=== PATIENT | male | born 1950 | race Caucasian/White ===

== ENCOUNTER → 2018-11-27 11:41 | Outpatient (CLI) | payer MEDICARE, SELFPAY ==
--- NOTE | 2018-11-27 | DI.CT.S_ITS ---
PROCEDURE: CT CERVICAL SPINE WO CON INDICATIONS: Severe posterior neck pain TECHNIQUE: Noncontrast 3 mm thick sections acquired from the skull base to the T4 level. Sagittal and coronal reformats were then constructed. For radiation dose reduction, the following was used: automated exposure control, adjustment of mA and/or kV according to patient size. COMPARISON: [facility] [place], [place], XR CERVICAL SPINE 2 OR 3 VIEWS, 09/11/2017, 15:57. FINDINGS: Image quality: Excellent. Bones: A prosthetic disc is noted at C3-4 with grade 1 anterolisthesis of C3 on C. or measuring 5 mm. There is severe disc space narrowing at C5-6 and C6-7. Trace retrolisthesis is present of C6 on C7. Multilevel small anterior osteophytes are present most prominent at C5, C6 and C7. Disc bulges are present at C4-5, C5-6 C6-7. Mild spinal stenosis is present at C4-5 and C5-6. There is moderate right foraminal narrowing at C4-5, moderate bilateral C5-6 and moderate left C6-7. Soft tissues: Prevertebral soft tissues are normal in thickness. No paravertebral hematomas. No apical pneumothoraces. IMPRESSION: 1. 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 2. Multilevel disc bulges and spinal stenosis. 3. Multilevel foraminal narrowing most significant at C4-5 through C6-7 secondary to uncovertebral arthropathy. Dictated by: Leticia Shah M.D. on 11/27/2018 at 14:32 Approved by: Leticia Shah M.D. on 11/27/2018 at 14:56
== END ==
PROVIDERS: PCP Physician Assistant; Visit Provider Orthopaedic Surgery
DX: M50.221 Other cervical disc displacement at C4-C5 level (principal); M47.812 Spondylosis without myelopathy or radiculopathy, cervical region; M48.02 Spinal stenosis, cervical region; M43.12 Spondylolisthesis, cervical region
CPT/HCPCS: 72125

== ENCOUNTER → 2019-05-31 10:38 | Outpatient (CLI) | payer MEDICARE, SELFPAY ==
--- NOTE | 2019-05-31 | DI.MRI.S_ITS ---
PROCEDURE: MR LUMBAR SPINE WO CON INDICATIONS: Spinal stenosis, lumbar region TECHNIQUE: Noncontrast sagittal T1 spin echo and T2 fast echo, sagittal STIR, axial T1 and T2 fast spin echo through the lumbar spine. In cases with scoliosis, additional coronal T2 fast spin echo may be performed. COMPARISON: [facility] [place], CR, XR LUMBAR SPINE 2 OR 3 VIEWS, 05/14/2019, 14:34. FINDINGS: Image quality: Excellent. Alignment and Curvature: There is one anterolisthesis of L4 on L5. Bone Marrow: Marrow is of normal overall signal. No acute vertebral body compression fractures. Spinal Cord: Conus medullaris terminates at the L1 level. Visualized cord demonstrates normal signal and size. Paraspinous Soft Tissues: No paravertebral masses. L1-L2: Mild loss of disc height and disc desiccation. There is diffuse posterior disc bulge. Mild bilateral facet arthropathy and hypertrophy ligamentum flavum. The central canal is moderately narrowed. Moderate left and mild right foraminal stenosis. No definitive nerve root impingement. L2-L3: Mild loss of disc height and disc desiccation. There is diffuse posterior disc bulge. Mild bilateral facet arthropathy and hypertrophy ligamentum flavum. Epidural lipomatosis. The central canal is whdykvak-iz-lrzoquma narrowed. Moderate foraminal stenoses bilaterally. There is likely cauda equina nerve root compression. L3-L4: Preserved disc height and disc desiccation. There is diffuse posterior disc bulge. Mild bilateral facet arthropathy and hypertrophy ligamentum flavum. Epidural lipomatosis. The central canal is lgczdgdz-va-jxxoreih narrowed. Ulna-mv-eiicqxrw foraminal stenoses bilaterally. There is likely cauda equina nerve root compression. L4-L5: Preserved disc height and disc desiccation. There is diffuse posterior disc bulge. Severe right and moderate left facet arthropathy. The central canal mildly narrowed. Eqvwarxr-vv-xjbyno foraminal stenoses bilaterally. No definitive nerve root compression. L5-S1: Preserved disc height and disc desiccation. There is diffuse posterior disc bulge and disc protrusion. Moderate left and mild right facet arthropathy. The central canal patent. Jkejigjr-ed-fhvent foraminal stenoses bilaterally. No definitive nerve root compression. IMPRESSION: 1. Multilevel degenerative disc disease and facet arthropathy as described. 2. Bynicwvr-ky-dlppos central canal stenosis at L2-L3 and L3-L4, and moderate central canal stenosis at L1-L2. 3. Multilevel foraminal stenoses as described. Dictated by: Sanford Taylor M.D. on 06/01/2019 at 14:00 Approved by: Sanford Taylor M.D. on 06/01/2019 at 14:17
== END ==
PROVIDERS: PCP Physician Assistant; Visit Provider Orthopaedic Surgery
DX: M48.062 Spinal stenosis, lumbar region with neurogenic claudication (principal); M48.07 Spinal stenosis, lumbosacral region; M51.36 Other intervertebral disc degeneration, lumbar region; M51.37 Other intervertebral disc degeneration, lumbosacral region; M47.816 Spondylosis without myelopathy or radiculopathy, lumbar region; M47.817 Spondylosis without myelopathy or radiculopathy, lumbosacral region
CPT/HCPCS: 72148

== ENCOUNTER → 2019-11-21 13:55 | Outpatient (CLI) | payer MEDICARE, SELFPAY ==
[2019-11-22 08:17] LABS: COVID19 Sendout Not Detected (Not Detect)
== END ==
PROVIDERS: PCP Physician Assistant; Visit Provider Physician Assistant
DX: Z01.818 Encounter for other preprocedural examination (principal)
CPT/HCPCS: 87635

== ENCOUNTER 2019-11-24 06:37 | Inpatient (IN) | payer MEDICARE, SELFPAY ==
[2019-09-11 09:00] VITALS: BMI 26.3
[2019-11-18 11:58] VITALS: BMI 26.3
--- NOTE | 2019-11-20 14:24 | SUR.PREOP ---
Addendum entered by Ellie Allan R.N. 11/20/19 14:31: pt returned call and advised he is schd for Sat 11/23 @ [id number] Original Note: Left msg regarding covid test requesting pt to call with info on where and when test was performed
[2019-11-24] VITALS (16 sets, daily range): BP systolic 113–167; BP diastolic 52–84; PULSE 72–89; RESP 7–18; TEMP 35.8–37.3; O2SAT 95–100; BMI 26.3
--- NOTE | 2019-11-24 | DI.RAD.S_ITS ---
PROCEDURE: XR CERVICAL SPINE 2V OR 3V INDICATIONS: C3-4 ARTIFICIAL DISK REMOVAL TECHNIQUE: 2 view(s) of the cervical spine were acquired. COMPARISON: [facility], XR CERVICAL SPINE 2 OR 3 VIEWS, 05/25/2019, 14:38. FINDINGS: Spot fluoroscopic intraoperative images demonstrating removal of C3-C4 prosthetic disc Interbody cage and anterior retaining pins at C3-C4. Dictated by: Bradley Pineda M.D. on 11/24/2019 at 10:38 Approved by: Bradley Pineda M.D. on 11/24/2019 at 10:40
--- NOTE | 2019-11-24 07:16 | P.HP_ITS ---
History of Present Illness History of Present Illness Date Patient Seen: 11/24/19 Time Patient Seen: 07:16 Chief complaint: [id number] Narrative: 69-year-old male with cervical myelopathy. He has a history of a C3- 4 artificial disc replacement on 06/06/2017. He did well at 1st but over the past year has been having increasing symptoms. If he moves his head quickly or tips his head backwards, his whole body feels weak and he feels like he will pass out. He had an epidural injection which relieved the symptoms for about a month. He has some popping and cracking in the neck but only mild pain in the neck itself. Denies knee pain numbness or weakness going out in the arms. He did have another fall a few weeks ago when he was about to go up the stairs and he looked up too quickly and 5th completely collapsed. He does have low back pain with radiation going down the legs as well. Patient History Medical History Colon polyps (Acute) DJD (degenerative joint disease) (Acute) Easy bruisability (Acute) Finger injury (Acute) Former smoker (Acute) GERD (gastroesophageal reflux disease) (Acute) HTN (hypertension) (Acute) Numbness and tingling (Acute) Pneumonia (Acute) Prostate cancer (Acute 2010) Recurrent prostate cancer (Acute 2012) Surgical History H/O radical prostatectomy (Acute 2010) History of arthroplasty of right hip (Acute 2007) History of back surgery (Acute) Hx of cervical spine surgery (Acute 2016) Hx of hernia repair (Acute) Hx of laminectomy (Acute) Hx of thumb surgery (Acute) Hx of tonsillectomy (Acute) S/P foot surgery, right (Acute 09/16/17) Family & Social History Social History: household members spouse,family Prior Living Arrangements House Safety & Behavioral: Feels Safe in Current Yes Environment Been Physically Hurt or No Threatened By a Person Suicidal Ideation Description None Suicide Plan Description No Plan Tobacco & Substance use: Smoking Status Former smoker alcohol intake current alcohol intake frequency 3 or more drinks per day Substance Use Type marijuana Meds Home Medications and Allergies Home Medications Medication Instructions Recorded Confirmed Type lisinopril 20 mg PO QDAY #0 06/05/17 09/11/19 History ibuprofen 800 mg PO TIDP PRN 09/11/19 09/11/19 History Allergies Allergy/AdvReac Type Severity Reaction Status Date / Time No Known Drug Allergies Allergy Verified 09/11/19 09:03 Review of Systems Constitutional Constitutional: Denies chills and Denies fever(s) Respiratory Respiratory: Denies cough Exam Const Orientation: alert and oriented x3 Resp Auscultation: clear to auscultation bilaterally Cardio Rate: regular rate Rhythm: regular rhythm Neuro Other: Well-healed anterior cervical incision. Tender at the base of the cervical spine. 5/5 motor, intact sensation both upper extremities. Objective Imaging Cervical x-rays: My impression: From 05/25/2019 shows artificial disc replacement at C3-4. 5 mm dynamic listhesis between flexion and extension Cervical CT scan: My impression: From 11/27/2018 shows C3-4: Artificial disc replacement with 5 mm thesis. Moderate central stenosis. Severe right facet arthropathy. C4-5: Mild central stenosis severe right facet hypertrophy. Moderate right foraminal narrowing. C5-6: Collapse of the disc, mild central stenosis, moderate bilateral foraminal stenosis. C6-7: Collapse of the disc, Mild central stenosis, moderate to severe bilateral foraminal stenosis Labs Labs: covid negative 11/21/2019 Assessment & Plan Assessment & Plan narrative: Failed artificial disc replacement. He has had a progressive slip at C3-4 over the past several years and now has progressive myelopathy with motion in the neck. We are going to go ahead with surgical revision at this level now that the coronavirus restrictions are lessening and we can proceed with more urgent surgeries. With his progressive myelopathy and increasing falls, I do feel he fits into the urgent category where the surgery needs to be done to prevent further falls and progressive neurologic injury. This will be removal of the artificial disc replacement at C3-4 and changing out to an instrumented fusion and then flipping him over for a posterior supplemental instrumented fusion. Risks and benefits of surgery were again discussed.
[2019-11-24] MEDS: LACTATED RINGERS 1,000 ML 42 ML IV (07:40)
[2019-11-24] MEDS: CEFAZOLIN 2 GM/100 ML FROZ.PIGGY IV ×2 (07:51→15:48)
--- NOTE | 2019-11-24 08:26 | SUR.OPER ---
Supine on padded OR bed, head on gel donut, arms padded and tucked at sides, legs uncrossed, safety belt at thigh, Prone on gel chest roll, gel pad under knees, pillows under bilateral lower legs, foam pillow for face, arms on padded arm boards.
[2019-11-24] MEDS: SODIUM CHLORIDE 0.9% 1,000 ML, GENTAMICIN 80 MG IRR (09:54)
[2019-11-24] MEDS: BUPIVACAINE 0.25% W/ EPI (PF) 10 ML VIAL 60 ML INJ (09:54)
[2019-11-24] MEDS: THROMBIN (RECOMBINANT) 5,000 UNIT VIAL 5000 UNIT TOP (09:55)
--- NOTE | 2019-11-24 09:59 | P.OP_ITS ---
Operative Date/Time/Diagnoses Date of procedure: 11/24/19 Time of procedure: 09:59 Pre-op diagnosis: Failed cervical disc replacement Cervical stenosis with myelopathy Post-op diagnosis: same Procedure & Clinicians Procedure: C3-4 removal artificial disc replacement C3-4 anterior cervical fusion C3-4 posterior fusion with instrumentation Iliac crest bone graft Same procedure as scheduled: Yes Indications: [age] old male with progressive myelopathy. He had failed conservative management and requested operative intervention. Risks and benefits of surgery were discussed and appropriate consents were obtained. Surgeon: Steve Adames [employer] Salesperson: Carlos Quinn Anesthesia Type: General Operative Notes Findings: None Closure Type: primary Specimen(s): none sent Prosthetic devices, grafts, tissues, transplants, or devices: Bright OSWALDO-C anterior [place] Cavus posterior Estimated Blood Loss (mL): 5 Procedure in detail: Patient was brought to the operating room and intubated on the table. His head was kept in a neutral position. A time-out was performed. Preoperative antibiotics were given. The neck was prepped and draped in the standard sterile fashion. Using a skin fold, we made a 3 cm oblique incision on the left side utilizing his previous scar. We used Bovie to go through the platysma and then did a standard anterolateral blunt dissection down to the precervical fascia. Fascia was nicked and elevated up. A marker was placed and x-ray was taken for localization. We then used the Bovie to go through the scar and exposed the artificial disc replacement. We subperiosteally elevated up the longus colli muscles until the artificial disc was exposed. Self-retaining retractors were placed. [place] pins were placed. We distracted across the pins and then used an osteotome to free up the superior and inferior endplate of the disc replacement. The disc replacement was removed. We then used a curette and Kerrisons and pituitaries to remove the posterior scar tissue. The curettes were used to prep the endplates. We trialed and took an x-ray to confirm our positioning. The patient had a nice reduction of there spondylolisthesis. A small stab incision was made over the left anterior iliac crest. A Jamshidi needle was advanced into the pelvis and 2 mL of bone marrow was aspirated. We then used the trials. We then packed a 17 x 14 x 6 mm OSWALDO-C cage with Primagen bone graft and the iliac crest harvest. The cage was placed under fluoroscopic guidance. We then placed our two locking plates. The self- retaining retractors and [place] pins were removed and final x-rays taken. The wound was irrigated. There was no bleeding. The carotid was beating nicely. As he would be prone for the next half of the procedure, a small drain was placed in the neck. The platysma was closed. The superficial was closed. The skin was closed. A sterile dressing was placed. He was then rolled over to the well-padded prone position. Two C arms were used for bi planer visualization. The back of the neck was prepped and draped in the standard sterile fashion. Using fluoroscopy, the incision sites were marked and infiltrated with Marcaine down through the soft tissue. We then made two 1 cm horizontal incisions. Then percutaneously placed our Steinmann pin through the soft tissue into the facet joint at C3-4 under fluoroscopic visualization. We used the reamer to decorticate the lateral masses compromising the facet. A trocar was placed over the Steinmann pin into the facet and then the pin was removed. We used a rasp to decorticate the facet joint itself. We then filled the Cavus cage with Primagen bone graft and impacted it into the facet joint at C3-4 under fluoroscopic guidance. We then took the lateral mass screw and placed it through the cage and then into the lateral mass for the posterior screw fixation. The hose seamer was removed and we packed more bone graft down the trocar covering the lateral mass. This was done bilaterally. This completed the instrumented posterior fusion at C3-4. The wounds were irrigated. The skin was closed. Sterile dressings were placed. The patient was then rolled over, extubated and brought to the recovery room without complication. Complications: none Post-operative Condition: stable Disposition: PACU Plan for aftercare: Inpatient. Plan to discharge tomorrow.
[2019-11-24] MEDS: fentaNYL 100 MCG/2 ML INJ IV ×2 (10:05→10:15)
[2019-11-24] MEDS: hydrOXYzine 50 MG/ML INJ 25 MG IM (10:08)
[2019-11-24] MEDS: OXYCODONE/ACETAMINOPHEN 5/325 TABLET 1 TAB PO ×2 (10:28→10:54)
[2019-11-24] MEDS: HYDROMORPHONE 2 MG INJ IV (10:30)
--- NOTE | 2019-11-24 11:15 | SUR.PHASEI ---
Patient taken upstairs to room 209 with all belongings. Report given to receiving RN Anabel. Left in stable condition with receiving RN at bedside.
--- NOTE | 2019-11-24 11:22 | CM.DPNOTE ---
Attempted pt. assessment. Pt. still hasn't arrived to floor post surgeries.
[2019-11-24] MEDS: LACTATED RINGERS 1,000 ML 125 ML IV ×2 (11:31→20:14)
--- NOTE | 2019-11-24 14:34 | PC.NURSE ---
Addendum entered by Lula Marks R.N. 11/24/19 15:30: Let zack shift RN know that patient's admit assessment generated CIWA protocol orders (patient admits to drinking 3+ drinks per day), but this health underwriter did not have a chance to place seizure pads or set up suction unit. Patient back to bed at change of shift after using the bathroom, denied any issues with voiding/retention. Call light and belongings within reach, bed alarm on. Original Note: Post-op and transfer to room 223: To room 209 at 1110 from PACU. Alert and oriented X3. Room air, cont pulse ox in place. Dressings to anterior neck both have shadow sanguinous drainage which was marked and has not moved outside of markings. Dressing to posterior neck and L hip are both C/D/I. Soft collar in place. Reports his throat is sore but no s/sx aspiration noted with PO intake. Reports chronic numbness/tingling in BLE's r/t issues with lumbar spine, denies any new paresthesias. Vitals stable. Tolerating PO's without N/V. IVF per orders, site in L FA WNL. Moved to room 223 approx 1430. Oriented to new room and call light and encouraged to make needs known. Light and belongings within reach, bed alarm on.
[2019-11-24] MEDS: BENZOCAINE/MENTHOL 1 LOZ PKT 1 EACH PO ×4 (15:47→22:05)
--- NOTE | 2019-11-24 16:45 | PT.IIE ---
Current Diagnoses Spinal stenosis, cervical region (11/24/19) Spinal stenosis, lumbar region with neurogenic claudication (11/24/19) Other intervertebral disc degeneration, lumbar region (11/24/19) Surgery Performed Operation Date: 09/17/19 07:45 <No data on this case meets the specified criteria> Operation Date: 11/24/19 07:45 Actual Procedures p C34 artificial disc removal & anterior/posterior instrumentated fusion w/ bone graft - Steve Adames MD Surgical History (Last Reviewed 11/24/19 @ 07:23 by Steve Adames MD) H/O radical prostatectomy (Acute 2010) History of arthroplasty of right hip (Acute 2007) History of back surgery (Acute) Hx of cervical spine surgery (Acute 2016) Hx of hernia repair (Acute) Hx of laminectomy (Acute) Hx of thumb surgery (Acute) Hx of tonsillectomy (Acute) S/P foot surgery, right (Acute 09/16/17) Medical History (Last Reviewed 11/24/19 @ 07:23 by Steve Adames MD) Colon polyps (Acute) DJD (degenerative joint disease) (Acute) Easy bruisability (Acute) Finger injury (Acute) Former smoker (Acute) GERD (gastroesophageal reflux disease) (Acute) HTN (hypertension) (Acute) Numbness and tingling (Acute) Pneumonia (Acute) Prostate cancer (Acute 2010) Recurrent prostate cancer (Acute 2012) Physical Therapy Inpatient Evaluation/Re-Eval M1 PT/OT-IP Prior Functional Status Start: 11/24/19 10:53 Freq: NEEDED Status: Active Protocol: Document 11/24/19 16:18 AW (Rec: 11/24/19 16:44 AW [id number]) Medical Review Prior Functional Status Medical History Reviewed No Diet/Fluid Consistency Regular Communication WNL Mobility and Gait Pt reports independent ambulation without AD but does endorse recently worsening history of falls - typically related to cervical extension. Activities of Daily Living and IADL's Independent Social History Household Members spouse,family Living Arrangements House Number of Floors (Floors) Two Floors Number of Stairs To Enter/Railing? Level entrance to main level. Pt does need to go down the stairs (~15 with B rails) to attend to his 102 yo mother on a regular basis. While he is recuperating, pt's will take on more of the caregiver tasks and they will also have contracted caregiver but with limited hours. 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 His mother also lives in the daylight basement. He is planning to avoid driving for the next few weeks. M2 PT-IP Current Condition Start: 11/24/19 10:53 Freq: NEEDED Status: Active Protocol: Document 11/24/19 16:18 AW (Rec: 11/24/19 16:44 AW [id number]) Physical Therapy Current Condition Current Condition Evaluation Date 11/24/19 Treatment Diagnosis s/p C3-4 artificial disc removal/fusion; difficulty in walking Onset Date 11/24/19 Precautions Cervical Spine Precautions Soft Collar for Comfort,No Heavy Lifting,Log Roll Weight Bearing Status Weight Bearing Status Full Weight Bearing M3 PT-IP Subjective Start: 11/24/19 10:53 Freq: NEEDED Status: Active Protocol: Document 11/24/19 16:18 AW (Rec: 11/24/19 16:44 AW [id number]) Subjective Physical Therapy Visit Type Type Initial Evaluation Visit Start Time 15:20 Visit Stop Time 15:53 Total Visit Minutes 33 Notes Pt has history of cervical disc replacement in 2017 and L4-5 laminectomy in 2013. Physical Therapy Visit Comments Patient Comments Pt is willing to participate with PT Patient Goals To go home when stable Therapy Pain Assessment Pain When Pain Assessed During Mobility Pain Present Pain Present Pain Reported M4 PT-IP Mobility and Gait Start: 11/24/19 10:53 Freq: NEEDED Status: Active Protocol: Document 11/24/19 16:18 AW (Rec: 11/24/19 16:44 AW [id number]) PT-Bed Mobility Assessment Rolling Type of Rolling Log Rolling,Roll to Left Level of Assist Standby Assistance Supine to Sit Supine to Sit Standby Assistance PT-Transfer Assessment Sit to and From Stand Sit to and from Stand Standby Assistance,1 Person Assistance Equipment Transfer Assistive Device Gait Belt Transfers Transfer Destination Chair Transfer Technique pt ambulated without AD Transfer Ability Level of Assist Standby Assistance Comments Mobility Comments Pt found reclined in bed upon PT arrival, willing to work with therapy. He completed all bed mobility SBA including log roll to his left side with good attention to cervical neutrality. He stood EOB SBA without device and was able to march in place without overt symptoms or unsteadiness. He then ambulated in the halls SBA and returned to the room to transfer to the chair. He was positioned with call light and table within reach. Pt verbally agreed to use the call light for all mobility needs. RN was notified of pt position and lack of chair alarm Gait Assessment Gait Gait Assistance Required: Standby Assistance Distance (Feet) 200 Able to Maintain Weight Bearing Status Yes During Gait Assistive Devices Assistive Device Gait Belt Orthotic/Prosthetic Devices or Brace: No Gait Deviations General Gait Pattern Antalgic,Decreased Feet Clearance,Lateral Trunk Lean, Wide Based Gait Factors Limiting Gait Function Factors Limiting Gait Function Decreased Sensation,Decreased Strength,Pain,Poor Balance Comments Gait Comments Pt ambulated in the halls ~200 feet without AD SBA. He demonstrated good awareness of his head movements, turning his trunk instead of just his head to look at artwork over his shoulder. Stair Climbing Assessment Comments Stair Climbing Comments Not assessed. Defer to AM treatment. PT-Balance Assessment Sitting Balance and Reactions Static Sitting Balance Ability Good Dynamic Sitting Balance Ability Good Standing Balance and Reactions Static Standing Balance Ability Good Dynamic Standing Balance Ability Fair M5 PT-IP Objective Assessments Start: 11/24/19 10:53 Freq: NEEDED Status: Active Protocol: Document 11/24/19 16:18 AW (Rec: 11/24/19 16:44 AW [id number]) Orientation Orientation/Cognition Level of Alertness Alert Orientation Name,Day of Week,Place, Situation Safety Awareness Understands Safety Issues Memory Description No Deficits Noted Comments Pt's voice is scratchy and he has difficulty modulating his volume. Baseline is unknown. Gross Range of Motion Upper Extremity ROM Assessment Within Functional Limits Lower Extremity ROM Assessment Within Functional Limits Strength Lower Extremity Strength Assessment Within Functional Limits Comments Strength Comments BLE grossly 4+/5 Coordination Assessment Gross Coordination Gross Coordination WNL Sensation Assessment Sensation Gross Sensation Right LE Impaired,Left LE Impaired Light Touch Impaired Sensation Description Numbness,Tingling Comments Sensation Comments Chronic paresthesias related to lumbar stenosis Muscle Tone Muscle Tone WNL Yes M6 PT-IP Treatment Start: 11/24/19 10:53 Freq: NEEDED Status: Active Protocol: Document 11/24/19 16:18 AW (Rec: 11/24/19 16:44 AW [id number]) Physical Therapy Treatment Education Education Provided Precautions,Post-Op Packet, Safety Brace Education Donning,Rudolph,Patient Other Treatments Other Treatment Performed Pt was educated on donning and doffing of soft collar with mirror for visual feedback. Pt able to return demonstrate. Pt was also provided handout on safe swallow following neck surgery with signs that would warrant a call to the doctor. M7 PT-IP Assessment and Plan Start: 11/24/19 10:53 Freq: NEEDED Status: Active Protocol: Document 11/24/19 16:18 AW (Rec: 11/24/19 16:44 AW [id number]) PT Summary Assessment and Plan Potential Rehabilitation Potential Excellent Status of Condition at Evaluation Evolving Summary Impairments Pain,ROM,Strength,Balance,Bed Mobility,Transfers,Gait, Activity Tolerance Assessment Summary Mike is a 69 yo man seen for PT evaluation on POD0 following C3-4 artificial disc removal and fusion. He had disc replacement in 2017 and L4-5 laminectomy in 2013. At baseline, he is independent with all mobility and ADL's though does report increased number of falls over the past few months which he describes as drop attacks related to cervical extension. On evaluation, pain was well- controlled and pt required SBA for all mobility. He will benefit from at least one more acute PT visit to reinforce education regarding safe mobility and to assess safety on stairs while wearing soft collar. Pt will be safe to discharge home with assist once medically stable. Goals Bed Mobility Goal Independent Transfer Goal Independent Gait Goal Independent Gait Distance 300 Other Goals - up/down 15 stairs with B rails SBA Days to Meet Goals 2 Frequency of Treatment Frequency Of Treatment Twice a Day Treatment Plan Physical Therapy Treatment Plan Bed Mobility Training,Transfer Training,Gait Training, Therapeutic Exercise,Balance Retraining,Post Op Education, Discharge Planning,Hot or Cold Pack,Neuromuscular Re-ed Other Recommendations and Next Treatment progress independent gait; Focus assess safety on stairs Recommendations To Nursing Amount of Assist Needed Standby Assistance Discharge Recommendations PT Discharge Recommendations Home with Assistance Transportation Needs at Discharge Private Vehicle
[2019-11-24] MEDS: HYDROCODONE/ACET 5/325 TABLET 2 TAB PO ×2 (17:07→22:04)
[2019-11-24] MEDS: GABAPENTIN 300 MG CAPSULE PO (20:19)
[2019-11-25 00:45] VITALS: BP 103/59; PULSE 72; RESP 18; TEMP 36.7; O2SAT 98
[2019-11-25] MEDS: CEFAZOLIN 2 GM/100 ML FROZ.PIGGY IV (00:46)
[2019-11-25] MEDS: BENZOCAINE/MENTHOL 1 LOZ PKT 1 EACH PO ×2 (00:46→06:42)
[2019-11-25 04:28] VITALS: BP 120/70; PULSE 69; RESP 18; TEMP 36.2; O2SAT 100
--- NOTE | 2019-11-25 08:03 | PM.PNPO.1 ---
Subjective Subjective Date Patient Seen: 11/25/19 Time Patient Seen: 08:03 Interval history: He is doing well. Some pain in the neck. Denies neurologic symptoms with moving the neck anymore. Exam Vital Signs (past 8 hours): - 11/25/19 00:45 11/25/19 04:28 Temperature 98.0 F 97.2 F L Pulse Rate 72 69 Respiratory Rate 18 18 Blood Pressure 103/59 L 120/70 Pulse Oximetry 98 100 Oxygen Delivery Method Room Air Oxygen Flow Rate 0 Const Orientation: alert and oriented x3 Back/Spine/Pelvis Other: Posterior dressing minimal drainage. Anterior dressing moderate dry drainage, unchanged from yesterday. No swelling an anterior soft tissue. 5/5 motor both upper extremities Assessment & Plan Post-op Postoperative Procedures: Procedures Operation Date: 09/17/19 07:45 <No data on this case meets the specified criteria> Operation Date: 11/24/19 07:45 Actual Procedures Side Surgeon p C34 artificial disc removal & anterior/posterior instrumentated fusion w/ bone graft Steve Adames MD He is doing well. This seems to have taking care of his neurologic symptoms. Mobilize this morning with therapy and then discharged home afterwards. Quality VTE Deep Vein Thrombosis/Pulmonary Embolism Present on Admission: No
--- NOTE | 2019-11-25 08:05 | CM.DANOTE ---
Addendum entered by Sujatha Basurto 11/25/19 08:08: Important message from Medicare signed by patient this AM. Copy placed in scanning folder. Original Note: DCP/Assessment: Reviewed chart. Met with patient explained CM/SW role. Patient alert and oriented at time of visit. Patient reports that he will be discharging from [facility] today. Patient and RN report that there are no anticipated d/c needs. Patient resides with spouse and reports that she will pick him up this AM. P: Home today. JESSICA Parsons Discharge Planning/Care Management CM Discharge Assessment Start: 11/24/19 14:45 Freq: Status: Active Protocol: Document 11/24/19 14:45 KJS (Rec: 11/24/19 14:51 KJS [id number]) Discharge Planning Assessment Assigned Senior Hr Generalist JESSICA Parsons Contact Information Tasha Black (spouse) [phone] Advance Directives? No History Provided By Medical Record Has Patient been admitted in last 30 No days? Prior Living Arrangements House Household Members spouse,family Caregiver for Another No Comment Unclear at this time. Patient off floor for surgery today C3 -[address] Adames. Discharge Plan Home Transportation Arrangement Family Additional Comment Will assess patient on 11-25-19 after seen by therapy. D/C needs unknown at this time. Whiteboard Updated in Patient Room with Yes name and ext. # of Senior Hr Generalist Review Status In Process Next Review Type Continued Stay Review Document 11/25/19 08:04 KJS (Rec: 11/25/19 08:05 KJS [id number]) Discharge Planning Assessment Assigned Senior Hr Generalist JESSICA Parsons Contact Information Tasha Black (spouse) Advance Directives? No History Provided By Patient,Medical Record Has Patient been admitted in last 30 No days? Prior Living Arrangements House Household Members spouse,family Type of transporation used prior to Drives own vehicle admit Caregiver for Another No DME Already Rented / Owned FWW / Walker Barriers to Discharge No Comment Unclear at this time. Patient off floor for surgery today C3 -[address] Adames. Discharge Plan Home Transportation Arrangement Family Additional Comment Will assess patient on 11-25-19 after seen by therapy. D/C needs unknown at this time. Whiteboard Updated in Patient Room with Yes name and ext. # of Senior Hr Generalist Review Status In Process Next Review Type Continued Stay Review Pre-Anesthesia Assessment Start: 09/11/19 09:00 Freq: Status: Active Protocol: Document 09/11/19 09:00 [facility] (Rec: 09/11/19 09:43 [facility] [id number]) Pre-Anesthesia Assessment Preferred Name Mike Patient Information Reviewed Via Phone Assessment Assessment Completed With Patient Comment Labs/EKG done 09/07/19 @ [facility] per pt, not available at time of PAC assess Primary Care Provider Johanna Rascon Seen Specialist in Last 12 Months Yes Specialist Seen Orthopedist Primary Language [place] Manager Non Profit Required No Height 167.64 cm Weight 73.936 kg Body Mass Index (BMI) 26.3 Hearing Ability Normal Visual Impairment No Limitations Visual Assist None Dentition Type Teeth, Natural Present Barriers to Learning None Hx Anesthesia Reactions No Hx Family Anesthesia Reaction No Hx Malignant Hyperthermia No Hx Blood Transfusions No Anesthesia Review Requested No alcohol intake current alcohol intake frequency 3 or more drinks per day Alcohol Intake Frequency Other: Pt states, I probably drink too much -encouraged to reduce amount Smoking Status Former smoker how long ago did patient quit smoking Quit during [place] Substance Use Type marijuana Comment Marijuana salve Pain Present Pain Reported Musculoskeletal Symptoms Back Pain,Joint Pain,Limited Range of Motion,Neck Pain, Numbness,Radiating Pain into Limb History of Falling (Recent or History of No ) Patient is completely paralyzed or No completely immobile Mental Status Oriented to own ability Is patient on oxygen? No Does patient have HERRMANN/SOB No Hx Sleep Apnea No Currently Taking a Beta Haily No Can You Climb a Flight of Stairs Without Yes SOB Hx Chest Pain No Hx SOB No Hx Syncope or Dizziness Yes: Dizziness r/t neck nerve compression with quick movements Anti-Coagulant Therapy No Has a Phosphorus Processing Supervisor No Cardiac Testing No Hx Pacemaker/ICD No Pacemaker Rep Required? No Cardiac Clearance Received Not Applicable Diet Type At Home Vegetarian dysphagia No: Does eat fish as well Genitourinary Symptoms Dribbling Bladder Pattern Incontinent Urinary Catheter Present No Hx Urinary Self Catheterization No Diabetes No Hx Drug Resistant Organism No Presence of External or Internal Medical Yes: RT hip prosthesis, Devices cervical hardware [place] exposure No Have you had any close contact with No someone diagnosed with NOVEL CORONAVIRUS ? Have you traveled outside the [facility] in the last 30 days? Marital Status Lives With spouse,family Prior Living Arrangements House Number of Floors (Floors) Two Floors Support System Spouse Does the Patient Have Assistance After Yes Surgery Patient Discharge Plan Description Return Home Comment Pt not advised on length of stay per surgeon Feels Safe in Current Environment Yes Been Physically Hurt or Threatened By a No Person in Current Environment Do you have thoughts of harming yourself None or others? Are you currently considering suicide? No Do you have a plan to hurt yourself or No Plan others? Do You Have Any Spiritual Beliefs That No May Affect Your HC Choices? Do You Have Any Cultural Practices That No May Affect Your HC Choices? Who Can We Speak to About Patient's Care Family, friends Identifying Code for Release of Patient Declines to issue Information Health Care Proxy/Next of Kin Tasha () Health Care Proxy Emergency Contact Name Tasha () Emergency Contact Advance Directives? No Power of Patient Educator No PAC Instructions Medications to take/avoid, Nasal antibiotic,No ETOH/ petroleum product on skin DOS, NPO,Post-op transportation,Pre -surgical wash,Sturdy shoes/ comfortable clothes,Do not bring valuables and remove jewelry Document 11/18/19 11:58 CAB (Rec: 11/18/19 12:02 CAB [id number]) Pre-Anesthesia Assessment PAC Comment Pt declined updated PAC assesment, stated no changes to medical/medication history from prior PAC call on 09/11/19 . Pt had no questions regarding medications or instructions Preferred Name Mike Patient Information Reviewed Via Chart Review,Phone Assessment Assessment Completed With Patient Comment COVID testing not identified time of chart review-Labs/EKG done 09/07/19@[facility] Primary Care Provider Johanna Rascon Seen Specialist in Last 12 Months Yes Specialist Seen Orthopedist Primary Language [place] Manager Non Profit Required No Height 167.64 cm Weight 73.936 kg Body Mass Index (BMI) 26.3 Hearing Ability Normal Visual Impairment No Limitations Visual Assist None Dentition Type Teeth, Natural Present Barriers to Learning None Hx Anesthesia Reactions No Hx Family Anesthesia Reaction No Hx Malignant Hyperthermia No Hx Blood Transfusions No Anesthesia Review Requested No alcohol intake current alcohol intake frequency 3 or more drinks per day Alcohol Intake Frequency Other: Pt states, I probably drink too much -encouraged to reduce amount Smoking Status Former smoker how long ago did patient quit smoking Quit during [place] Substance Use Type marijuana Comment Marijuana salve Pain Present Pain Reported Musculoskeletal Symptoms Back Pain,Joint Pain,Limited Range of Motion,Neck Pain, Numbness,Radiating Pain into Limb History of Falling (Recent or History of No ) Patient is completely paralyzed or No completely immobile Mental Status Oriented to own ability Is patient on oxygen? No Does patient have HERRMANN/SOB No Hx Sleep Apnea No Currently Taking a Beta Haily No Can You Climb a Flight of Stairs Without Yes SOB Hx Chest Pain No Hx SOB No Hx Syncope or Dizziness Yes: Dizziness r/t neck nerve compression with quick movements Anti-Coagulant Therapy No Has a Phosphorus Processing Supervisor No Cardiac Testing No Hx Pacemaker/ICD No Pacemaker Rep Required? No Cardiac Clearance Received Not Applicable Diet Type At Home Vegetarian dysphagia No: Does eat fish as well Genitourinary Symptoms Dribbling Bladder Pattern Incontinent Urinary Catheter Present No Hx Urinary Self Catheterization No Diabetes No Hx Drug Resistant Organism No Presence of External or Internal Medical Yes: RT hip prosthesis, Devices cervical hardware Have you had any close contact with Unknown someone diagnosed with COVID-19? Evaluation/Screening for possible COVID- No 19 infection completed? Marital Status Lives With spouse,family Prior Living Arrangements House Number of Floors (Floors) Two Floors Support System Spouse Does the Patient Have Assistance After Yes Surgery Patient Discharge Plan Description Return Home Comment Pt not advised on length of stay per surgeon Feels Safe in Current Environment Yes Been Physically Hurt or Threatened By a No Person in Current Environment Do you have thoughts of harming yourself None or others? Are you currently considering suicide? No Do you have a plan to hurt yourself or No Plan others? Do You Have Any Spiritual Beliefs That No May Affect Your HC Choices? Do You Have Any Cultural Practices That No May Affect Your HC Choices? Who Can We Speak to About Patient's Care Family, friends Identifying Code for Release of Patient Declines to issue Information Health Care Proxy/Next of Kin Tasha () Health Care Proxy Emergency Contact Name Tasha () Emergency Contact Advance Directives? No Power of Patient Educator No PAC Instructions Medications to take/avoid, Nasal antibiotic,No ETOH/ petroleum product on skin DOS, NPO,Post-op transportation,Pre -surgical wash,Sturdy shoes/ comfortable clothes,Do not bring valuables and remove jewelry
[2019-11-25] MEDS: lisinopriL 20 MG TABLET PO (08:40)
[2019-11-25] MEDS: DOCUSATE 100 MG CAPSULE PO (08:40)
--- NOTE | 2019-11-25 09:03 | PT.IPTN ---
Current Diagnoses Spinal stenosis, cervical region (11/24/19) Spinal stenosis, lumbar region with neurogenic claudication (11/24/19) Other intervertebral disc degeneration, lumbar region (11/24/19) Surgery Performed Operation Date: 09/17/19 07:45 <No data on this case meets the specified criteria> Operation Date: 11/24/19 07:45 Actual Procedures p C34 artificial disc removal & anterior/posterior instrumentated fusion w/ bone graft - Steve Adames MD Physical Therapy Treatment Note M2 PT-IP Current Condition Start: 11/24/19 10:53 Freq: NEEDED Status: Active Protocol: Document 11/24/19 16:18 AW (Rec: 11/24/19 16:44 AW [id number]) Physical Therapy Current Condition Current Condition Evaluation Date 11/24/19 Treatment Diagnosis s/p C3-4 artificial disc removal/fusion; difficulty in walking Onset Date 11/24/19 Precautions Cervical Spine Precautions Soft Collar for Comfort,No Heavy Lifting,Log Roll Weight Bearing Status Weight Bearing Status Full Weight Bearing M3 PT-IP Subjective Start: 11/24/19 10:53 Freq: NEEDED Status: Active Protocol: Document 11/25/19 09:03 AB (Rec: 11/25/19 11:06 AB [id number]) Subjective Physical Therapy Visit Type Type Treatment Note Visit Start Time 09:03 Visit Stop Time 09:13 Total Visit Minutes 10 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 Physical Therapy Visit Comments Patient Comments pt agreeable to do PT Therapy Pain Assessment Pain When Pain Assessed At Rest Pain Present Pain Present Pain Reported Location Neck Intensity 3 Scale Used Numeric (1 - 10) Pain Management Techniques Re-positioning,Timing of Activity with Medications M4 PT-IP Mobility and Gait Start: 11/24/19 10:53 Freq: NEEDED Status: Active Protocol: Document 11/25/19 09:03 AB (Rec: 11/25/19 11:06 AB [id number]) PT-Bed Mobility Assessment Rolling Type of Rolling Log Rolling Supine to Sit Supine to Sit Independent Sit to Supine Sit to Supine Independent PT-Transfer Assessment Sit to and From Stand Sit to and from Stand Independent Equipment Transfer Assistive Device None Transfers Transfer Destination Chair Transfer Technique ambulated without AD Transfer Ability Level of Assist Independent Comments Mobility Comments pt was using the toilet when PT arrived. was able to walk out of the toilet without AD supervision and washed his hands by the sink supervision. ambulated in the hallway without AD mod I. pt stated that he does not need to do stairs. Gait Assessment Gait Gait Assistance Required: Independent Distance (Feet) 300 Able to Maintain Weight Bearing Status Yes During Gait Assistive Devices Assistive Device None,Gait Belt Orthotic/Prosthetic Devices or Brace: Yes M5 PT-IP Objective Assessments Start: 11/24/19 10:53 Freq: NEEDED Status: Active Protocol: Document 11/24/19 16:18 AW (Rec: 11/24/19 16:44 AW [id number]) Orientation Orientation/Cognition Level of Alertness Alert Orientation Name,Day of Week,Place, Situation Safety Awareness Understands Safety Issues Memory Description No Deficits Noted Comments Pt's voice is scratchy and he has difficulty modulating his volume. Baseline is unknown. Gross Range of Motion Upper Extremity ROM Assessment Within Functional Limits Lower Extremity ROM Assessment Within Functional Limits Strength Lower Extremity Strength Assessment Within Functional Limits Comments Strength Comments BLE grossly 4+/5 Coordination Assessment Gross Coordination Gross Coordination WNL Sensation Assessment Sensation Gross Sensation Right LE Impaired,Left LE Impaired Light Touch Impaired Sensation Description Numbness,Tingling Comments Sensation Comments Chronic paresthesias related to lumbar stenosis Muscle Tone Muscle Tone WNL Yes M6 PT-IP Treatment Start: 11/24/19 10:53 Freq: NEEDED Status: Active Protocol: Document 11/25/19 09:03 AB (Rec: 11/25/19 11:06 AB [id number]) Physical Therapy Treatment Education Education Provided Precautions,Safety M7 PT-IP Assessment and Plan Start: 11/24/19 10:53 Freq: NEEDED Status: Active Protocol: Document 11/25/19 09:03 AB (Rec: 11/25/19 11:06 AB [id number]) PT Summary Assessment and Plan Potential Rehabilitation Potential Good Summary Impairments Pain,ROM,Gait Progress Towards Goals Progressing Toward Goals,Safe For Discharge Assessment Summary pt plans to go home today and spouse to assist him. pt had previous cervical surgery and stated that he knows what to do. Goals Gait Goal Independent Gait Distance 350 Other Goals - up/down 15 stairs with B rails SBA Days to Meet Goals 2 Frequency of Treatment Frequency Of Treatment Twice a Day Treatment Plan Physical Therapy Treatment Plan Bed Mobility Training,Transfer Training,Gait Training, Therapeutic Exercise,Balance Retraining,Post Op Education, Discharge Planning,Hot or Cold Pack,Neuromuscular Re-ed Recommendations To Nursing Amount of Assist Needed Standby Assistance Discharge Recommendations PT Discharge Recommendations Home with Assistance Transportation Needs at Discharge Private Vehicle
--- NOTE | 2019-11-25 10:05 | OT.IP.TRT ---
Current Diagnoses Spinal stenosis, cervical region (11/24/19) Spinal stenosis, lumbar region with neurogenic claudication (11/24/19) Other intervertebral disc degeneration, lumbar region (11/24/19) Surgery Performed Operation Date: 09/17/19 07:45 <No data on this case meets the specified criteria> Operation Date: 11/24/19 07:45 Actual Procedures p C34 artificial disc removal & anterior/posterior instrumentated fusion w/ bone graft - Steve Adames MD Occupational Therapy Treatment Note M3 OT- IP Subjective and Pain Start: 11/25/19 09:54 Freq: Status: Active Protocol: Document 11/25/19 09:55 [facility] (Rec: 11/25/19 10:04 [facility] [id number]) OT- Subjective Occupational Therapy Visit Type Type Treatment Note Visit Start Time 09:45 Visit Stop Time 10:53 Total Visit Minutes 8 Notes Pt seen for short treatment to go over OT safety suggestions versus OT eval. Occupational Therapy Visit Comments Patient Comments Pt waiting on his to go home. Patient/Caregiver Goals TO go home. OT Pain Assessment Pain When Pain Assessed At Rest Pain Present Pain Present Denied Pain M4 OT- IP ADL's Start: 11/25/19 09:54 Freq: Status: Active Protocol: Document 11/25/19 09:55 [facility] (Rec: 11/25/19 10:04 [facility] [id number]) OT HER-Asfp-Repwaay Comments OT Self-Feeding Comments Encouraged pt to eat softer food, sit upright while eating , and take it slow for eating. Pt noted increased coughing and pt states he normally coughs at home and does not feel that it is related to just having cervical surgery , nursing notified. OT ADL-Grooming Comments OT Grooming Comments Educated to lean forwards or spit on to a cup. OT ADL-Dressing Comments OT Dressing Comments Pt already dressed and states had no difficulties for any dressing needs. OT ADL-Toileting Comments OT Toileting Comments Pt not having to go. M9 OT- IP Assessment and Plan Start: 11/25/19 09:54 Freq: Status: Active Protocol: Document 11/25/19 09:55 [facility] (Rec: 11/25/19 10:04 [facility] [id number]) OT Summary Assessment and Plan Potential Rehabilitation Potential Excellent Analytic Complexity at Evaluation Low Summary Assessment Summary Pt looking to go home today. Pt noted increased coughing while talking to therapist and states usually coughs a lot. Pt does not feel it is due to fact he just had cervical surgery. Nursing notified of pt's increase coughing. NURSE [employer] AID also called to screen pt. Frequency of Treatment Frequency Of Treatment Once a Day Discharge Recommendations OT Discharge Recommendations Home with Assistance Transportation Needs at Discharge Private Vehicle
== END 2019-11-25 11:15 | disposition home or self-care (01) | DRG 454 ==
PROVIDERS: Admitting Provider Orthopaedic Surgery; PCP Physician Assistant; Referring Provider Orthopaedic Surgery; Visit Provider Orthopaedic Surgery
PROC: 0RG10A0 Fusion of Cervical Vertebral Joint with Interbody Fusion Device, Anterior Approach, Anterior Column, Open Approach (ICD-10-PCS; principal; 2019-11-24 07:45)
DX: T84.098A Other mechanical complication of other internal joint prosthesis, initial encounter (principal); G99.2 Myelopathy in diseases classified elsewhere; M48.02 Spinal stenosis, cervical region; I10 Essential (primary) hypertension; Z85.46 Personal history of malignant neoplasm of prostate; Z87.891 Personal history of nicotine dependence; Z01.818 Encounter for other preprocedural examination
CPT/HCPCS: 72040; 76000; 87635; 97116; 97161; 97535; C1776; J0690; J1100; J1170; J2250; J2405; J2704; J3010; J3410

== ENCOUNTER → 2020-01-04 09:40 | Outpatient (CLI) | payer MEDICARE, SELFPAY ==
[2019-11-24 13:21] VITALS: BMI 26.3
[2020-01-04 23:33] LABS: COVID19 Sendout Not Detected (Not Detect)
== END ==
PROVIDERS: PCP Physician Assistant; Visit Provider Physician Assistant
DX: Z01.812 Encounter for preprocedural laboratory examination (principal)
CPT/HCPCS: 87635

== ENCOUNTER 2020-01-08 15:00 | Observation (INO) | payer MEDICARE, SELFPAY ==
[2019-11-24 13:21] VITALS: BMI 26.3
[2019-12-31 08:16] VITALS: BMI 25.2
[2020-01-07] VITALS (15 sets, daily range): BP systolic 103–156; BP diastolic 51–77; PULSE 61–90; RESP 10–18; TEMP 36.2–37.1; O2SAT 92–100; BMI 25.4
--- NOTE | 2020-01-07 | DI.RAD.S_ITS ---
PROCEDURE: XR LUMBAR SPINE 2-3V INDICATIONS: L4-5 L5-S1 TLIF TECHNIQUE: 2 views of the lumbar spine were acquired. COMPARISON: None. FINDINGS: Bones: Postsurgical changes compatible L4-S1 TLIF. There is normal bony alignment. No suspicious bony lesions. Soft tissues: Overlying bowel gas pattern is normal. No suspicious soft tissue calcifications. IMPRESSION: Expected postsurgical change for L4-S1 TLIF. Dictated by: Miryam Connell MD, PhD on 01/07/2020 at 12:13 Approved by: Miryam Connell MD, PhD on 01/07/2020 at 12:15
--- NOTE | 2020-01-07 07:11 | PM.PREOP ---
Pre-operative Note COVID-19 COVID-19 status: Negative Result date/Date tested (Pos, Neg/Pending): 01/04/20 Interval Note History & Physical reviewed/Exam performed by Physician: Yes Changes to H&P: No
[2020-01-07] MEDS: CEFAZOLIN 2 GM/100 ML FROZ.PIGGY IV ×2 (07:50→15:58)
--- NOTE | 2020-01-07 08:25 | SUR.OPER ---
Prone on spine table, head in foam head support, padded chest and pelvic supports, gel pad at knees, lower legs supported by pillows; nipples, genitalia and toes free of pressure, arms secured on foam padded arm boards at <90 degrees abduction. Tape over blanket at thigh secured to table.
[2020-01-07] MEDS: VANCOMYCIN 1,000 MG VIAL 1000 MG TOP (08:49)
[2020-01-07] MEDS: THROMBIN (RECOMBINANT) 5,000 UNIT VIAL 5000 UNIT TOP (08:50)
[2020-01-07] MEDS: SODIUM CHLORIDE 0.9% 1,000 ML, GENTAMICIN 80 MG IRR ×2 (08:50→08:51)
[2020-01-07] MEDS: BUPIVACAINE 0.5% (PF) 4 ML, MORPHINE-PF 4 MG, BUTORPHANOL 1 MG, fentaNYL 100 MCG INJ (08:52)
[2020-01-07] MEDS: LACTATED RINGERS 1,000 ML 42 ML IV (10:20)
--- NOTE | 2020-01-07 11:57 | P.OP_ITS ---
Operative Date/Time/Diagnoses Date of procedure: 01/07/20 Time of procedure: 11:57 Pre-op diagnosis: lumbar stenosis with radiculopathy history lumbar laminectomy Post-op diagnosis: same Procedure & Clinicians Procedure: L2-3, L3-4 laminectomies. L4-5, L5-S1 Revision laminectomies L4-5, L5-S1 TLIF (posterior/posterior interbody fusion) with cages L4, L5, S1 screws Iliac crest bone graft aspirate Use of microscope Placement of epidural catheter Same procedure as scheduled: Yes Indications: [age] year old male with intractable pain from stenosis. They had failed conservative management and requested operative intervention. Risks and benefits of surgery were discussed and appropriate consents were obtained. Surgeon: Steve Adames Tower Crane Operator: June Lopez Anesthesia Type: General Operative Notes Findings: None Closure Type: primary Specimen(s): none sent Prosthetic devices, grafts, tissues, transplants, or devices: NuVasive MAS Reline screws Globus Rise cages Applied: catheter Estimated Blood Loss (mL): 30 Procedure in detail: The patient was brought to the operating room and intubated on the table. A time-out was performed. They were then rolled over to the well- padded Meir table in the prone position. Preoperative antibiotics were given. The back was prepped and draped in the standard sterile fashion. Using fluoroscopy, a 4 cm longitudinal incision was made to the right of the midline. We used Bovie to come down to and split the lumbodorsal fascia. Using fluoroscopy and monitoring, we then percutaneously placed Jamshidi needles down the pedicles of L4, L5, and S1 on the right side. These were changed out to guidewires and then we tapped and then placed the NuVasive MAS Reline screw shanks. We then opened up the retractors and used Bovie to clear up the post erolateral gutter as well as medially along the lamina to the spinous processes. A bur was used to decorticate the transverse process of L5 and the sacral ala. We brought in the microscope. Using a combination of bur and Kerrison rongeurs, a revision laminectomy was performed from the right side at L5-S1. We cleared to the midline but it was quite scarred in past this. We had to peel back some of the scar tissue to finally free up the dura and decompress this. We then went out to clear the neural foramen. This required a facetectomy to adequately open it up. This completed the laminectomy at L5-S1. This was separate and distinct from the TLIF approach as this was a revision laminectomy and we are working through scar tissue. This also had scar tissue underneath the dura when we had to retracted medially. We then began the TLIF prep. We carefully cleaned up the remainder of the foramen until we could easily retract the exiting root as well as clearing medially below the dura and expose the disc space. There was scar tissue that had to be mobilized first in order to do this. The disc was prepped with bipolar and then an annulotomy was performed. We performed a diskectomy using a combination of paddles, conner, pituitaries, and curettes. We distracted the disc using a paddle and locked the retractor in an open position. We then filled the disc space with Osteocel bone graft. We then placed the globus Rise cage under fluoroscopy and then filled this in with more bone graft. The distraction on the retractor was released to compress down. This completed the posterior interbody fusion portion of the TLIF at L5-S1. We then switched our retractors up to the L4-5 level and exposed the gutter and medially. The L4 transverse process was decorticated. We brought in the microscope and performed a revision laminectomy from the right-sided L4-5. Again there was scar tissue this time going over well past the midline onto the side that we had to carefully work through and peel back into were able to finally mobilize the dura and complete the open up the central canal. We had to perform a facetectomy to be able to adequately decompress the neural foramen. This was separate and distinct from a TLIF approach as we were working through scar tissue doing laminectomy and was revision laminectomy level. We then began to prep for the TLIF. Again we retracted going around scar. The disc was prepped with bipolar. An annulotomy was performed. We performed a complete diskectomy at L4-5 using a combination of paddle Conner pituitaries and curettes. We distracted opening up with a paddle and locked retractor in the open position. We then filled the disc space with bone graft. We placed another globus Rise cage under fluoroscopy and opened this up. We then filled this in with more bone graft. The distraction was released. This completed the posterior interbody fusion portion of the TLIF at L4-5. We then moved the retractor up to the L3-4 level and exposed the lamina. This was cleared off with Bovie. We then performed a L3-4 laminectomy clearing across the midline to decompress the canal as well as the neural foramen. We then moved the retractor up 1 more level to the L2-3 level expose the lamina. This was cleared off with Bovie. We then performed an L2-3 laminectomy, clearing across the midline for the hole canal as well as the neural foramen. The wound was then irrigated. An epidural catheter was then prepped with 4 mL of 0.5% Marcaine, 1 mg Stadol, 4 mg Duramorph, and 100 mcg of fentanyl and placed in the spinal canal by regina bledsoe depressing the dura and advancing it 6 cm cephalad under the remaining lamina without resistance. We then placed the screw heads, gina, and locked down the set screws. A small stab incision was made over the PSIS. We used a Jamshidi needle to aspirate several mL of bone marrow from the pelvis. This was mixed with the remaining Osteocel and combined with all of the locally harvested bone graft and placed in the posterolateral gutter for the posterior fusion of the TLIF at L4-5 and L5-S1. The muscle fascia was closed. The epidural catheter was then injected without resistance and the catheter was pulled. We then went to the opposite side. Again using fluoroscopy, a 3 cm incision was made and Bovie was used to come down to split the fascia. Using neural monitoring and fluoroscopy, Jamshidi needles were advanced down the pedicles of L4, L5, and S1 on the left side. These were switched over guidewires, tapped, and screws placed. We then placed a gina and locked the set screws on this side. The wound was irrigated. The fascia was closed. Vancomycin powder was placed in the wounds. The superficial and skin were closed. A sterile dressing was placed. The patient was then rolled over extubated and brought to recovery room without complications. Complications: none Post-operative Condition: stable Disposition: PACU Plan for aftercare: Admitted. Up with physical therapy.
[2020-01-07] MEDS: LACTATED RINGERS 1,000 ML 125 ML IV (14:21)
[2020-01-07] MEDS: CELECOXIB 200 MG CAPSULE 400 MG PO (14:22)
[2020-01-07] MEDS: hydrOXYzine pamoate 25 MG CAPSULE PO (14:27)
[2020-01-07] MEDS: OXYCODONE IR 5 MG TABLET 10 MG PO ×2 (15:59→19:20)
--- NOTE | 2020-01-07 17:06 | PT.IIE ---
Current Diagnoses Spinal stenosis, lumbar region with neurogenic claudication (01/07/20) Other specified postprocedural states (01/07/20) Surgery Performed Operation Date: 01/07/20 07:45 Actual Procedures p L2-4 laminectomies, revision L4-S1 laminectomies, L4-S1 instrumented fusion w/bone graft(Not Applicable) - Steve Adames MD Surgical History (Last Updated 12/31/19 @ 08:22 by Blanca Montejo RN) H/O radical prostatectomy (Acute 2010) History of arthroplasty of right hip (Acute 2007) History of back surgery (Acute) Hx of cervical spine surgery (Acute 2016) Hx of hernia repair (Acute) Hx of laminectomy (Acute) Hx of thumb surgery (Acute) Hx of tonsillectomy (Acute) S/P cervical spinal fusion (Acute 11/24/19) S/P foot surgery, right (Acute 09/16/17) Medical History (Last Reviewed 11/24/19 @ 07:23 by Steve Adames MD) Colon polyps (Acute) DJD (degenerative joint disease) (Acute) Easy bruisability (Acute) Finger injury (Acute) Former smoker (Acute) GERD (gastroesophageal reflux disease) (Acute) HTN (hypertension) (Acute) Numbness and tingling (Acute) Pneumonia (Acute) Prostate cancer (Acute 2010) Recurrent prostate cancer (Acute 2012) Physical Therapy Inpatient Evaluation/Re-Eval M1 PT/OT-IP Prior Functional Status Start: 01/07/20 16:12 Freq: NEEDED Status: Active Protocol: Document 01/07/20 16:42 AW (Rec: 01/07/20 17:06 AW [id number]) Medical Review Prior Functional Status Medical History Reviewed Yes Communication WNL Mobility and Gait Pt is an independent ambulator . He was having increased frequency of falls related to cervical extension. He had ACDF on November 23 and reports improvement in his mobility since that time. Activities of Daily Living and IADL's Independent Social History Household Members spouse,family Living Arrangements House Number of Floors (Floors) Two Floors Number of Stairs To Enter/Railing? level entrance to main level. Pt has no need to go down the stairs to the daylight basement where his 102 yo mother lives. Pt's , Tasha , took on greater caregiving duties after his neck surgery and will do so again. 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 His mother also lives downstairs in the basement. M2 PT-IP Current Condition Start: 01/07/20 16:12 Freq: NEEDED Status: Active Protocol: Document 01/07/20 16:42 AW (Rec: 01/07/20 17:06 AW [id number]) Physical Therapy Current Condition Current Condition Evaluation Date 01/07/20 Treatment Diagnosis L2-3 L4-5 lami, L4-5 L5-S1 TLIF; impaired mobility Onset Date 01/07/20 Precautions Lumbar Precautions Log Roll,No Twisting,Limit Bending,Lifting Restriction of 10 lbs,Gait Belt above Incisional Area Other Precautions ACDF on 11/23 M3 PT-IP Subjective Start: 01/07/20 16:12 Freq: NEEDED Status: Active Protocol: Document 01/07/20 16:42 AW (Rec: 01/07/20 17:06 AW [id number]) Subjective Physical Therapy Visit Type Type Initial Evaluation Visit Start Time 16:20 Visit Stop Time 16:38 Total Visit Minutes 18 Physical Therapy Visit Comments Patient Comments Pt is sleepy and having some difficulty attending to task but is willing to participate with PT. Patient Goals Pt planning to return home at discharge Therapy Pain Assessment Pain When Pain Assessed During Mobility Pain Present Pain Present Pain Reported Location bilateral leg pain Intensity 5 Scale Used Numeric (0 - 10) Pain Management Techniques Timing of Activity with Medications M4 PT-IP Mobility and Gait Start: 01/07/20 16:12 Freq: NEEDED Status: Active Protocol: Document 01/07/20 16:42 AW (Rec: 01/07/20 17:06 AW [id number]) PT-Bed Mobility Assessment Rolling Type of Rolling Log Rolling,Roll to Right Level of Assist Minimal Assistance,1 Person Assistance Supine to Sit Supine to Sit Minimal Assistance,1 Person Assistance Scooting Scooting to Edge of Bed Standby Assistance PT-Transfer Assessment Sit to and From Stand Sit to and from Stand Minimal Assistance,1 Person Assistance,Use of Upper Extremities Equipment Transfer Assistive Device Gait Belt,Front Wheeled Walker Transfers Transfer Destination Chair Transfer Technique pt ambulated with FWW Transfer Ability Level of Assist Minimal Assistance,1 Person Assistance,Use of Upper Extremities Comments Mobility Comments BP in supine was 120/68 HR 79. With HOB flat, pt required min A x 1 to log roll to his right side and for sidelying to sit transition. He was able to stand min A x 1 and used the FWW to ambulate in the room CGA. He then transferred to the chair, citing fatigue and weakness. He transferred CGA and was positioned in the chair with call light and all needs within reach. BP after activity was 125*81 HR 87. RN notified that no chair alarm was available in the room. Gait Assessment Gait Gait Assistance Required: Contact Guard Assist Distance (Feet) 10 Assistive Devices Assistive Device Gait Belt,Front Wheeled Walker Orthotic/Prosthetic Devices or Brace: No Gait Deviations General Gait Pattern Antalgic,Decreased Stride Length,Decreased Feet Clearance,Flexed Trunk Factors Limiting Gait Function Factors Limiting Gait Function Decreased Activity Tolerance, Decreased Sensation,Decreased Strength,Difficulty Following Directions,Pain,Poor Balance, Poor Safety Awareness Comments Gait Comments Pt had reduced tolerance for ambulation with FWW. Step length was severely diminished . Stair Climbing Assessment Comments Stair Climbing Comments Not assessed. PT-Balance Assessment Sitting Balance and Reactions Static Sitting Balance Ability Good Dynamic Sitting Balance Ability Good Standing Balance and Reactions Static Standing Balance Ability Good Dynamic Standing Balance Ability Fair Device Used FWW M5 PT-IP Objective Assessments Start: 01/07/20 16:12 Freq: NEEDED Status: Active Protocol: Document 01/07/20 16:42 AW (Rec: 01/07/20 17:06 AW [id number]) Orientation Orientation/Cognition Level of Alertness Lethargic Orientation Name,Date,Place,Situation Language Function Ability No Deficits Noted Safety Awareness Decreased Safety Awareness Memory Description No Deficits Noted Gross Range of Motion Lower Extremity ROM Assessment Within Functional Limits Strength Lower Extremity Strength Assessment Bilaterally Impaired Comments Strength Comments B LE grossly 4/5 compared with 4+/5 on previous assessment Coordination Assessment Gross Coordination Gross Coordination WNL Sensation Assessment Sensation Gross Sensation Right LE Impaired,Left LE Impaired Light Touch Impaired Muscle Tone Muscle Tone WNL Yes M6 PT-IP Treatment Start: 01/07/20 16:12 Freq: NEEDED Status: Active Protocol: Document 01/07/20 16:42 AW (Rec: 01/07/20 17:06 AW [id number]) Physical Therapy Treatment Education Education Provided Precautions,Weight Bearing Status,Post-Op Packet,Safety Other Treatments Other Treatment Performed Provided education on role of PT, plan of care, and rationale for selection of an assistive device. M7 PT-IP Assessment and Plan Start: 01/07/20 16:12 Freq: NEEDED Status: Active Protocol: Document 01/07/20 16:42 AW (Rec: 01/07/20 17:06 AW [id number]) PT Summary Assessment and Plan Potential Rehabilitation Potential Good Status of Condition at Evaluation Evolving Summary Impairments Pain,ROM,Strength,Balance, Sensation,Bed Mobility, Transfers,Gait,Activity Tolerance Assessment Summary Loco is a 69 yo man with recent history of ACDF seen for PT evaluation on POD0 following L2-S1 TLIF. At baseline, pt is an independent ambulator. On evaluation, pt required min assist for mobility except for CGA for ambulation with FWW. Pt will benefit from continued acute PT to reinforce back precautions and to progress mobility safely. PT anticipates pt will be safe to discharge to home with spouse assist when medically cleared . Goals Bed Mobility Goal Standby Assistance Transfer Goal Standby Assistance,Front Wheeled Walker Gait Goal Standby Assistance,Front Wheel Walker Gait Distance 200 Days to Meet Goals 3 Frequency of Treatment Frequency Of Treatment Twice a Day Treatment Plan Physical Therapy Treatment Plan Bed Mobility Training,Transfer Training,Gait Training, Therapeutic Exercise,Balance Retraining,Post Op Education, Discharge Planning,Hot or Cold Pack Other Recommendations and Next Treatment review precautions, log roll, Focus progress gait with FWW or LRAD Recommendations To Nursing Amount of Assist Needed 1 Person Assist Discharge Recommendations PT Discharge Recommendations Home with Assistance Transportation Needs at Discharge Private Vehicle
[2020-01-07] MEDS: diphenhydrAMINE 25 MG TABLET PO (17:51)
[2020-01-07] MEDS: CELECOXIB 200 MG CAPSULE PO (20:59)
[2020-01-07] MEDS: SENNOSIDES 8.6 MG TABLET 17.2 MG PO (20:59)
[2020-01-07] MEDS: DOCUSATE 100 MG CAPSULE PO (20:59)
[2020-01-07] MEDS: GABAPENTIN 300 MG CAPSULE PO (20:59)
[2020-01-08] VITALS (7 sets, daily range): BP systolic 100–126; BP diastolic 53–73; PULSE 70–82; RESP 15–18; TEMP 36–36.9; O2SAT 96–99
[2020-01-08] MEDS: CEFAZOLIN 2 GM/100 ML FROZ.PIGGY IV (00:18)
[2020-01-08] MEDS: OXYCODONE IR 5 MG TABLET 10 MG PO ×7 (00:27→23:03)
[2020-01-08] MEDS: LACTATED RINGERS 1,000 ML 125 ML IV (05:37)
[2020-01-08 06:12] LABS: Hematocrit 31.6 % (41-53); Hemoglobin 10.7 g/dL (13.5-17.5)
--- NOTE | 2020-01-08 07:38 | PM.PNPO.1 ---
Subjective Subjective Date Patient Seen: 01/08/20 Time Patient Seen: 07:39 Interval history: He is doing well. Pain is about a 4 at rest. Worse with mobility. All across the low back. Exam Vital Signs (past 8 hours): - 01/08/20 03:37 Temperature 98.4 F Pulse Rate 70 Respiratory Rate 18 Blood Pressure 100/55 L Pulse Oximetry 97 Oxygen Delivery Method Room Air Oxygen Flow Rate 0 Const Orientation: alert and oriented x3 Back/Spine/Pelvis Other: Mild to moderate drainage. 5/5 motor both lower extremities. Objective Labs Result Diagrams: 01/08/20 05:45 Labs: Laboratory Results - last 24 hr 01/08/20 05:45 Hgb 10.7 L Hct 31.6 L Assessment & Plan Post-op Postoperative Procedures: Procedures Operation Date: 01/07/20 07:45 Actual Procedures Side Surgeon p L2-4 laminectomies, revision L4-S1 laminectomies, L4-S1 instrumented fusion w/bone graft Not Applicable Steve Adames MD He is doing well. Mobilize today with physical therapy. Anticipate discharge home in the next 1-2 days depending on pain control and mobility. We had to use a pediatric catheter as he either has a stricture or a very tight urethra just 1 cm below the tip. I talked to his nurse and we will get his catheter out now so that if there are any problems urology is available during the day.
[2020-01-08] MEDS: DOCUSATE 100 MG CAPSULE PO ×2 (08:53→20:10)
[2020-01-08] MEDS: CELECOXIB 200 MG CAPSULE PO ×2 (08:53→20:10)
[2020-01-08] MEDS: SODIUM CHLORIDE 0.9% FLUSH 10 ML IV ×2 (09:01→20:10)
[2020-01-08] MEDS: ACETAMINOPHEN 325 MG TABLET 650 MG PO (09:04)
--- NOTE | 2020-01-08 09:33 | PC.NURSE ---
Addendum entered by Swathi Tran R.N. 01/08/20 10:50: Held Patient lisinopril at 0900, Pt BP low. 116/53 Pulse: 78 Original Note: Up with PT ambulating in hallway. Patient had dressing change this AM, Coversite placed. Patient is having pain in bed 01/07. Patient has been encouraged to change positions, but wants to stay on back.
--- NOTE | 2020-01-08 11:00 | PT.IPTN ---
Current Diagnoses Spinal stenosis, lumbar region with neurogenic claudication (01/07/20) Other specified postprocedural states (01/07/20) Surgery Performed Operation Date: 01/07/20 07:45 Actual Procedures p L2-4 laminectomies, revision L4-S1 laminectomies, L4-S1 instrumented fusion w/bone graft(Not Applicable) - Steve Adames MD Physical Therapy Treatment Note M2 PT-IP Current Condition Start: 01/07/20 16:12 Freq: NEEDED Status: Active Protocol: Document 01/07/20 16:42 AW (Rec: 01/07/20 17:06 AW [id number]) Physical Therapy Current Condition Current Condition Evaluation Date 01/07/20 Treatment Diagnosis L2-3 L4-5 lami, L4-5 L5-S1 TLIF; impaired mobility Onset Date 01/07/20 Precautions Lumbar Precautions Log Roll,No Twisting,Limit Bending,Lifting Restriction of 10 lbs,Gait Belt above Incisional Area Other Precautions ACDF on 11/23 M3 PT-IP Subjective Start: 01/07/20 16:12 Freq: NEEDED Status: Active Protocol: Document 01/08/20 10:48 HH (Rec: 01/08/20 11:00 [id number]) Subjective Physical Therapy Visit Type Type Treatment Note Visit Start Time 09:25 Visit Stop Time 09:42 Total Visit Minutes 17 Number of SCALE TESTER Visits 0 Physical Therapy Visit Comments Patient Comments I think im a bit better but my legs are weak. Therapy Pain Assessment Pain When Pain Assessed During Mobility Pain Present Pain Present Pain Reported Location Back Intensity 7 Scale Used Numeric (0 - 10) Description Aching,Acute Pain Behaviors Facial Grimacing,Guarding Pain Management Techniques Modification of Treatment,Re- positioning,Timing of Activity with Medications M4 PT-IP Mobility and Gait Start: 01/07/20 16:12 Freq: NEEDED Status: Active Protocol: Document 01/08/20 10:48 HH (Rec: 01/08/20 11:00 [id number]) PT-Bed Mobility Assessment Rolling Type of Rolling Log Rolling,Roll to Right Level of Assist Contact Guard Assistance Supine to Sit Supine to Sit Contact Guard Assistance, Bedrails Scooting Scooting to Edge of Bed Standby Assistance PT-Transfer Assessment Sit to and From Stand Sit to and from Stand Contact Guard Assistance,Use of Upper Extremities Equipment Transfer Assistive Device Gait Belt,Front Wheeled Walker Orthotic/Prosthetic Devices or Brace: No Transfers Transfer Destination Bed,Chair Transfer Technique pt ambulated with FWW Transfer Ability Level of Assist Contact Guard Assistance,Use of Upper Extremities Comments Mobility Comments Pt was in bed upon PT arrival .BP at 126/63. He completed log roll to right followed by SL push up using bed rail for push off with SBA. Pt took approx 30 secs to complete and he held his breath at the same time. Then he scooted to EOB and stood up with CGA but slowly d/t BLE weakness. Pt primarily pushed off through UEs on walker and he was unable to stand without UE to cristina his mask. After that, Pt then proceed to amb with FWW and step to pattern and flexed trunk. He primarily WB through UEs and had minimal feet clearance R worse than L . Pt was able to amb approx 30 feet in the hallway then returned to chair after with CGA FWW. He started to drag his R foot towards the last 20 -30 ft and needed cues to for feet clearance. Pt was able to returned to chair after with CGA but slowly. He then sat in chair comfortably with pain noted at 7/10, along with call light placed within reach. Educated pt to perform seated leg press, knee extension and ankle circles. Noticed pt has weakness on R>L. Notified RN regarding the findings. Gait Assessment Gait Gait Assistance Required: Contact Guard Assist Distance (Feet) 60 Assistive Devices Assistive Device Gait Belt,Front Wheeled Walker Orthotic/Prosthetic Devices or Brace: No Gait Deviations General Gait Pattern Antalgic,Decreased Stride Length,Decreased Feet Clearance,Flexed Trunk,Step-to Gait Factors Limiting Gait Function Factors Limiting Gait Function Decreased Activity Tolerance, Decreased Sensation,Decreased Strength,Difficulty Following Directions,Pain,Poor Balance, Poor Safety Awareness Comments Gait Comments minimal feet clearance and began to have slight foot drag on RLE towards the end of walking. Pt primarily WB through UEs. PT-Balance Assessment Sitting Balance and Reactions Static Sitting Balance Ability Good Dynamic Sitting Balance Ability Good Standing Balance and Reactions Static Standing Balance Ability Good Dynamic Standing Balance Ability Fair Device Used FWW M5 PT-IP Objective Assessments Start: 01/07/20 16:12 Freq: NEEDED Status: Active Protocol: Document 01/07/20 16:42 AW (Rec: 01/07/20 17:06 AW [id number]) Orientation Orientation/Cognition Level of Alertness Lethargic Orientation Name,Date,Place,Situation Language Function Ability No Deficits Noted Safety Awareness Decreased Safety Awareness Memory Description No Deficits Noted Gross Range of Motion Lower Extremity ROM Assessment Within Functional Limits Strength Lower Extremity Strength Assessment Bilaterally Impaired Comments Strength Comments B LE grossly 4/5 compared with 4+/5 on previous assessment Coordination Assessment Gross Coordination Gross Coordination WNL Sensation Assessment Sensation Gross Sensation Right LE Impaired,Left LE Impaired Light Touch Impaired Muscle Tone Muscle Tone WNL Yes M6 PT-IP Treatment Start: 01/07/20 16:12 Freq: NEEDED Status: Active Protocol: Document 01/07/20 16:42 AW (Rec: 01/07/20 17:06 AW [id number]) Physical Therapy Treatment Education Education Provided Precautions,Weight Bearing Status,Post-Op Packet,Safety Other Treatments Other Treatment Performed Provided education on role of PT, plan of care, and rationale for selection of an assistive device. M7 PT-IP Assessment and Plan Start: 01/07/20 16:12 Freq: NEEDED Status: Active Protocol: Document 01/08/20 10:48 HH (Rec: 01/08/20 11:00 HH [id number]) PT Summary Assessment and Plan Potential Rehabilitation Potential Good Status of Condition at Evaluation Evolving Summary Impairments Pain,ROM,Strength,Balance, Sensation,Bed Mobility, Transfers,Gait,Activity Tolerance Assessment Summary Loco improved with amb distance and less assistance needed for mobility. But he cont needed multiple reminders for post op precautions.`He also has generalized weakness on BLE R worse than L. Pt showed minimal feet clearance and began to drag his R foot towards the end of walking session. Pt cont needed close CGA for all mobility. will cont monitor his progress. Home health might be an option d/t his limited mobility. Goals Bed Mobility Goal Standby Assistance Transfer Goal Standby Assistance,Front Wheeled Walker Gait Goal Standby Assistance,Front Wheel Walker Gait Distance 200 Days to Meet Goals 3 Frequency of Treatment Frequency Of Treatment Twice a Day Treatment Plan Physical Therapy Treatment Plan Bed Mobility Training,Transfer Training,Gait Training, Therapeutic Exercise,Balance Retraining,Post Op Education, Discharge Planning,Hot or Cold Pack Other Recommendations and Next Treatment review precautions, log roll, Focus progress gait with FWW or LRAD Recommendations To Nursing Amount of Assist Needed 1 Person Assist Discharge Recommendations PT Discharge Recommendations Home with Assistance,Home Health Transportation Needs at Discharge Private Vehicle
--- NOTE | 2020-01-08 11:23 | OT.IP.EVAL ---
Current Diagnoses Spinal stenosis, lumbar region with neurogenic claudication (01/07/20) Other specified postprocedural states (01/07/20) Surgery Performed Operation Date: 01/07/20 07:45 Actual Procedures p L2-4 laminectomies, revision L4-S1 laminectomies, L4-S1 instrumented fusion w/bone graft(Not Applicable) - Steve Adames MD Past Medical History (Last Reviewed 11/24/19 @ 07:23 by Steve Adames MD) Colon polyps (Acute) DJD (degenerative joint disease) (Acute) Easy bruisability (Acute) Finger injury (Acute) Former smoker (Acute) GERD (gastroesophageal reflux disease) (Acute) HTN (hypertension) (Acute) Numbness and tingling (Acute) Pneumonia (Acute) Prostate cancer (Acute 2010) Recurrent prostate cancer (Acute 2012) Surgical History (Last Updated 12/31/19 @ 08:22 by Blanca Montejo RN) H/O radical prostatectomy (Acute 2010) History of arthroplasty of right hip (Acute 2007) History of back surgery (Acute) Hx of cervical spine surgery (Acute 2016) Hx of hernia repair (Acute) Hx of laminectomy (Acute) Hx of thumb surgery (Acute) Hx of tonsillectomy (Acute) S/P cervical spinal fusion (Acute 11/24/19) S/P foot surgery, right (Acute 09/16/17) Occupational Therapy Inpatient Evaluation/Re-Eval M1 PT/OT-IP Prior Functional Status Start: 01/07/20 16:12 Freq: NEEDED Status: Active Protocol: Document 01/08/20 12:04 CGR (Rec: 01/08/20 12:14 CGR [email or web address]) Medical Review Prior Functional Status Medical History Reviewed Yes Communication Pt is an effective verbal communicator. Mobility and Gait Pt is an independent ambulator . He was having increased frequency of falls related to cervical extension. He had ACDF on November 23 and reports improvement in his mobility since that time. Activities of Daily Living and IADL's Independent Social History Household Members spouse,family Living Arrangements House Number of Floors (Floors) Two Floors Number of Stairs To Enter/Railing? level entrance to main level. Pt has no need to go down the stairs to the daylight basement where his 102 yo mother lives. Pt's , Tasha , took on greater caregiving duties after his neck surgery and will do so again. 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 His mother also lives downstairs in the basement. Pt has a high flat bed. M2 OT-IP Current Condition Start: 01/08/20 12:03 Freq: Status: Active Protocol: Document 01/08/20 12:04 CGR (Rec: 01/08/20 12:14 CGR [email or web address]) Occupational Therapy Current Condition Current Condition Evaluation Date 01/08/20 Treatment Diagnosis L205 lami and L4-S1 TLIF, November 23 ACDF Diagnosis Onset Date 01/07/20 Post Operative Precautions Cervical Spine Precautions Soft Collar for Comfort,No Heavy Lifting,Log Roll M3 OT- IP Subjective and Pain Start: 01/08/20 12:03 Freq: Status: Active Protocol: Document 01/08/20 12:04 CGR (Rec: 01/08/20 12:14 CGR [email or web address]) OT- Subjective Occupational Therapy Visit Type Type Initial Evaluation Visit Start Time 11:11 Visit Stop Time 11:23 Total Visit Minutes 12 Notes Pt just completed shower with aide when OT entered. Occupational Therapy Visit Comments Patient Comments What does OT do? OT Pain Assessment Pain When Pain Assessed During Mobility Pain Present Pain Present Pain Reported Location Back Intensity 6 Scale Used Numeric (0 - 10) Management Techniques Modification of Treatment, Timing of Activity with Medications M4 OT- IP ADL's Start: 01/08/20 12:03 Freq: Status: Active Protocol: Document 01/08/20 12:04 CGR (Rec: 01/08/20 12:14 CGR [email or web address]) OT [id number] Comments OT Self-Feeding Comments not meal time OT ADL-Grooming General Evaluation Grooming Ability Independent Comments OT Grooming Comments standing at sink for washing face and brushing hair. OT ADL-Oral Care General Eval Oral Care Ability Independent Comments Oral Care Comments standing at sink OT ADL-Dressing General Eval Lower Body Dressing Ability Independent Areas Needing Assistance Socks Comments OT Dressing Comments seated in chair OT ADL-Toileting General Evaluation Toileting Ability Independent Comments OT Toileting Comments simulated seated on toilet OT ADL-Bathing Comments OT Bathing Comments Pt just completed shower with aide. M5 OT- IP IADL's Start: 01/08/20 12:03 Freq: Status: Active Protocol: Document 01/08/20 12:04 CGR (Rec: 01/08/20 12:14 CGR [email or web address]) OT-Instrumental Activities of Daily Living Deficits IADL Deficits Identified No Deficits Home Safety Awareness Awareness of Need for Assistance at Home Good Awareness Ability to Problem Solve Emergency Able to Problem Solve Situations Medication Management Medication Management No Deficits Identified Money Management Money Management No Deficits Identified Meal Preparation Meal Preparation No Deficits Identified Stock Parts Inspector Stock Parts Inspector No Deficits Identified Driving Driving Comments Pt understands that he should not drive till cleared by his MD. M6 OT- IP Functional Cognition Start: 01/08/20 12:03 Freq: Status: Active Protocol: Document 01/08/20 12:04 CGR (Rec: 01/08/20 12:14 CGR [email or web address]) Cognitive Factors Limiting Selfcare Function Cognitive Ability Level of Alertness Alert Patient Orientation Name,Age,Birthday,Month,Date, Year,Day of Week,Place, Situation Attention Span Ability Capable of Focused Attention, Capable of Sustained Attention Ability to Follow Commands Able to Follow Multi-Step Commands Memory Description No Deficits Noted OT- Vision and Hearing OT- Hearing Assessment OT- Hearing Assessment WFL OT- Vision Assessment Visual Acuity Glasses For Reading Visual Attentiveness WFL Occular Pursuits WFL Visual Convergence WFL M7 OT- IP Mobility and Balance Start: 01/08/20 12:03 Freq: Status: Active Protocol: Document 01/08/20 12:04 CGR (Rec: 01/08/20 12:14 CGR [email or web address]) OT- Bed Mobility Assessment Rolling Type of Rolling Log Rolling,Roll to Right,Roll to Left Level of Assistance Independent Supine to Sit Supine to Sit Assist Independent Sit to Supine Sit to Supine Assist Independent Scooting Scooting to Edge of Bed Independent OT-Transfer Assessment Sit to and From Stand Sit to and from Stand Independent Transfers Transfer Ability Independent Technique Transfer Destination Bed,Chair,Toilet Transfer Technique Stand Step Pivot Devices Transfer Assistive Devices Gait Belt OT- Gait Assessment Gait Gait Assistance Required: Independent Assistive Devices Assistive Device Gait Belt OT- Balance Assessment Sitting Balance and Reactions Static Sitting Balance Ability Normal Dynamic Sitting Balance Ability Good M8 OT- IP Objective Assessments Start: 01/08/20 12:03 Freq: Status: Active Protocol: Document 01/08/20 12:04 CGR (Rec: 01/08/20 12:14 CGR [email or web address]) OT Gross Range of Motion Upper Extremity Range of Motion Assessment Within Functional Limits OT Strength Upper Extremity Strength Assessment Within Functional Limits Comments Strength Comments 5/5 OT- Coordination Assessment Upper Extremity Finger to Nose Test Within Functional Limits Finger Tapping Test Within Functional Limits OT-Muscle Tone Assessment Muscle Tone WNL Yes OT Sensation Assessment Edema Edema Absent M9 OT- IP Assessment and Plan Start: 01/08/20 12:03 Freq: Status: Active Protocol: Document 01/08/20 12:04 CGR (Rec: 01/08/20 12:14 CGR [email or web address]) OT Summary Assessment and Plan Potential Rehabilitation Potential Excellent Analytic Complexity at Evaluation Low Summary OT Impairments Pain Progress Towards Goals Safe For Discharge,Goals Met Assessment Summary Pt presents as a low complexity evalution s/p TLIF. Pt is performing at or close to his baseline of IND. No further OT needs. Frequency of Treatment Frequency Of Treatment Discharge Discharge Recommendations OT Discharge Recommendations Home Transportation Needs at Discharge Private Vehicle
--- NOTE | 2020-01-08 14:04 | PC.NURSE ---
Addendum entered by Gloria Gomes R.N. 01/08/20 22:39: Pt spent most of shift in chair. Returned to bed, refused SCD's. Medicating per mar. Calling appropriately for needs. Original Note: Assumed care of pt at 1130. Pt sitting up in chair during bedside hand-off. Drsg to back c/d/i. Steady on feet 1 PA w/fww. Tolerated PO analgesics for post-op pain. Calling appropriately for needs.
--- NOTE | 2020-01-08 14:21 | PT.IPTN ---
Current Diagnoses Spinal stenosis, lumbar region with neurogenic claudication (01/07/20) Other specified postprocedural states (01/07/20) Surgery Performed Operation Date: 01/07/20 07:45 Actual Procedures p L2-4 laminectomies, revision L4-S1 laminectomies, L4-S1 instrumented fusion w/bone graft(Not Applicable) - Steve Adames MD Physical Therapy Treatment Note M2 PT-IP Current Condition Start: 01/07/20 16:12 Freq: NEEDED Status: Active Protocol: Document 01/07/20 16:42 AW (Rec: 01/07/20 17:06 AW [id number]) Physical Therapy Current Condition Current Condition Evaluation Date 01/07/20 Treatment Diagnosis L2-3 L4-5 lami, L4-5 L5-S1 TLIF; impaired mobility Onset Date 01/07/20 Precautions Lumbar Precautions Log Roll,No Twisting,Limit Bending,Lifting Restriction of 10 lbs,Gait Belt above Incisional Area Other Precautions ACDF on 11/23 M3 PT-IP Subjective Start: 01/07/20 16:12 Freq: NEEDED Status: Active Protocol: Document 01/08/20 14:09 KS (Rec: 01/08/20 14:43 KS [id number]) Subjective Physical Therapy Visit Type Type Treatment Note Visit Start Time 14:09 Visit Stop Time 14:21 Total Visit Minutes 12 Number of MOBILE 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 Therapy Pain Assessment Pain When Pain Assessed After Treatment Pain Present Pain Present Pain Reported Location Back Intensity 7 Scale Used Numeric (0 - 10) Description Aching,Acute Pain Behaviors Facial Grimacing,Guarding Pain Management Techniques Modification of Treatment,Re- positioning,Timing of Activity with Medications M4 PT-IP Mobility and Gait Start: 01/07/20 16:12 Freq: NEEDED Status: Active Protocol: Document 01/08/20 14:09 KS (Rec: 01/08/20 14:43 KS [id number]) PT-Bed Mobility Assessment Scooting Scooting to Edge of Bed Standby Assistance PT-Transfer Assessment Sit to and From Stand Sit to and from Stand Contact Guard Assistance,Use of Upper Extremities Equipment Transfer Assistive Device Gait Belt,Front Wheeled Walker Orthotic/Prosthetic Devices or Brace: No Transfers Transfer Destination Chair Transfer Technique pt ambulated with FWW Transfer Ability Level of Assist Contact Guard Assistance,Use of Upper Extremities Comments Mobility Comments Pt sitting in chair upon arrival from therapy. Pt performed 1x10 bilat seated marches w/ 3s hold at top to improve hip flexor strength followed by ankle pumps and quad sets. Pt then sit<>stand CGA and use of UE w/ FWW. Pt able to cristina mask himself alternating use of UE for support through FWW. Pt then ambulated ~60 ft w/ FWW and CGA. Pt continues to have decreased foot clearance R>L and requires cues for upright posture. Pt returned to room, CGA for stand<>sit in chair. Pt left w/ all needs in reach. Gait Assessment Gait Gait Assistance Required: Contact Guard Assist Distance (Feet) 60 Assistive Devices Assistive Device Gait Belt,Front Wheeled Walker Orthotic/Prosthetic Devices or Brace: No Gait Deviations General Gait Pattern Antalgic,Decreased Stride Length,Decreased Feet Clearance,Flexed Trunk,Step-to Gait Factors Limiting Gait Function Factors Limiting Gait Function Decreased Activity Tolerance, Decreased Sensation,Decreased Strength,Difficulty Following Directions,Pain,Poor Balance, Poor Safety Awareness Comments Gait Comments Please refer to mobility section for details. Stair Climbing Assessment Comments Stair Climbing Comments Not assessed. PT-Balance Assessment Sitting Balance and Reactions Static Sitting Balance Ability Good Dynamic Sitting Balance Ability Good Standing Balance and Reactions Static Standing Balance Ability Good Dynamic Standing Balance Ability Fair Device Used FWW M5 PT-IP Objective Assessments Start: 01/07/20 16:12 Freq: NEEDED Status: Active Protocol: Document 01/07/20 16:42 AW (Rec: 01/07/20 17:06 AW [id number]) Orientation Orientation/Cognition Level of Alertness Lethargic Orientation Name,Date,Place,Situation Language Function Ability No Deficits Noted Safety Awareness Decreased Safety Awareness Memory Description No Deficits Noted Gross Range of Motion Lower Extremity ROM Assessment Within Functional Limits Strength Lower Extremity Strength Assessment Bilaterally Impaired Comments Strength Comments B LE grossly 4/5 compared with 4+/5 on previous assessment Coordination Assessment Gross Coordination Gross Coordination WNL Sensation Assessment Sensation Gross Sensation Right LE Impaired,Left LE Impaired Light Touch Impaired Muscle Tone Muscle Tone WNL Yes M6 PT-IP Treatment Start: 01/07/20 16:12 Freq: NEEDED Status: Active Protocol: Document 01/08/20 14:09 KS (Rec: 01/08/20 14:43 KS [id number]) Physical Therapy Treatment Exercises Exercises Ankle Pumps,Quad Sets Education Education Provided Precautions,Weight Bearing Status,Post-Op Packet,Safety Other Treatments Other Treatment Performed Seated marches for hip flexor strengthening to improve foot clearance while ambulating. M7 PT-IP Assessment and Plan Start: 01/07/20 16:12 Freq: NEEDED Status: Active Protocol: Document 01/08/20 14:09 KS (Rec: 01/08/20 14:43 KS [id number]) PT Summary Assessment and Plan Potential Rehabilitation Potential Good Status of Condition at Evaluation Evolving Summary Impairments Pain,ROM,Strength,Balance, Sensation,Bed Mobility, Transfers,Gait,Activity Tolerance Assessment Summary Pt able to tolerate LE strengthening exercises including ankle pumps, quad sets, and seated marching. CGA for sit<>stand w/ FWW and for ambulation. Pt has decreased foot clearance R>L d/t pain and weakness, ambulated ~60 ft w/ FWW and CGA. Pt reported fatigue and 7/10 pain after mobility today. Pt may benefit from HHPT to improve strength , functional mobility, and tolerance for activity. Goals Bed Mobility Goal Standby Assistance Transfer Goal Standby Assistance,Front Wheeled Walker Gait Goal Standby Assistance,Front Wheel Walker Gait Distance 200 Days to Meet Goals 3 Frequency of Treatment Frequency Of Treatment Twice a Day Treatment Plan Physical Therapy Treatment Plan Bed Mobility Training,Transfer Training,Gait Training, Therapeutic Exercise,Balance Retraining,Post Op Education, Discharge Planning,Hot or Cold Pack Other Recommendations and Next Treatment review precautions, log roll, Focus progress gait with FWW or LRAD Recommendations To Nursing Amount of Assist Needed 1 Person Assist Discharge Recommendations PT Discharge Recommendations Home with Assistance,Home Health Transportation Needs at Discharge Private Vehicle
[2020-01-08] MEDS: SENNOSIDES 8.6 MG TABLET 17.2 MG PO (20:09)
[2020-01-08] MEDS: GABAPENTIN 300 MG CAPSULE PO (20:10)
[2020-01-09] VITALS (7 sets, daily range): BP systolic 111–129; BP diastolic 58–71; PULSE 66–90; RESP 15–17; TEMP 35.9–37.7; O2SAT 96–100
[2020-01-09] MEDS: OXYCODONE IR 5 MG TABLET 10 MG PO ×5 (03:25→20:54)
--- NOTE | 2020-01-09 03:36 | PC.NURSE ---
Addendum entered by Mily Gil R.N. 01/09/20 06:40: Up to bathroom with walker and 1 assist. Complains of sharp pain with movement, severity 7/10; medicated with Oxycodone. Original Note: Patient is alert and oriented. Breath sounds CTA with RA sat of 96%. HRR. Denies nausea. BT present and is passing flatus. Voiding in urinal; denies dysuria, frequency or urgency. Is able to turn self in bed but is very slow in movements due to pain. States pain is currently 6/10; medicated with Oxycodone and ice applied. Dressing to back is intact with shadow drainage noted. Refusing to wear SCD's; educated on DVT prevention. Fall risk score is high and bed alarm is activated.
--- NOTE | 2020-01-09 07:32 | PM.PNPO.1 ---
Subjective Subjective Date Patient Seen: 01/09/20 Time Patient Seen: 07:32 Interval history: He is okay without moving but when he gets up to move around the pain greatly intensifies. He just got up to go the bathroom and now his back is about an 8 and getting also some burning of 4/10 in the front of the thighs. Exam Vital Signs (past 8 hours): - 01/09/20 03:45 Temperature 97.9 F Pulse Rate 79 Respiratory Rate 16 Blood Pressure 125/64 Pulse Oximetry 96 Oxygen Delivery Method Room Air Oxygen Flow Rate 0 Const Orientation: alert and oriented x3 Back/Spine/Pelvis Other: CDI. 5/5 motor both lower extremities Objective Labs Result Diagrams: 01/08/20 05:45 Assessment & Plan Post-op Postoperative Procedures: Procedures Operation Date: 01/07/20 07:45 Actual Procedures Side Surgeon p L2-4 laminectomies, revision L4-S1 laminectomies, L4-S1 instrumented fusion w/bone graft Not Applicable Steve Adames MD number to try adding some steroids to see if this helps alleviate some of the radicular pain. Continue to mobilize with physical therapy. Anticipate discharge home tomorrow.
[2020-01-09] MEDS: DEXAMETHASONE 10 MG/ML VIAL IV (08:11)
[2020-01-09] MEDS: DOCUSATE 100 MG CAPSULE PO ×2 (08:11→20:54)
[2020-01-09] MEDS: CELECOXIB 200 MG CAPSULE PO ×2 (08:11→20:55)
[2020-01-09] MEDS: SODIUM CHLORIDE 0.9% FLUSH 10 ML IV ×4 (08:14→23:32)
--- NOTE | 2020-01-09 10:27 | PT.IPTN ---
Current Diagnoses Spinal stenosis, lumbar region with neurogenic claudication (01/07/20) Other specified postprocedural states (01/07/20) Surgery Performed Operation Date: 01/07/20 07:45 Actual Procedures p L2-4 laminectomies, revision L4-S1 laminectomies, L4-S1 instrumented fusion w/bone graft(Not Applicable) - Steve Adames MD Physical Therapy Treatment Note M2 PT-IP Current Condition Start: 01/07/20 16:12 Freq: NEEDED Status: Active Protocol: Document 01/07/20 16:42 AW (Rec: 01/07/20 17:06 AW [id number]) Physical Therapy Current Condition Current Condition Evaluation Date 01/07/20 Treatment Diagnosis L2-3 L4-5 lami, L4-5 L5-S1 TLIF; impaired mobility Onset Date 01/07/20 Precautions Lumbar Precautions Log Roll,No Twisting,Limit Bending,Lifting Restriction of 10 lbs,Gait Belt above Incisional Area Other Precautions ACDF on 11/23 M3 PT-IP Subjective Start: 01/07/20 16:12 Freq: NEEDED Status: Active Protocol: Document 01/09/20 10:14 KS (Rec: 01/09/20 12:14 KS [id number]) Subjective Physical Therapy Visit Type Type Treatment Note Visit Start Time 10:14 Visit Stop Time 10:27 Total Visit Minutes 13 Number of BAG INSPECTOR Visits 2 Physical Therapy Visit Comments Patient Comments Pt agreeable to work w/ therapy. Therapy Pain Assessment Pain When Pain Assessed During Mobility Pain Present Pain Present Pain Reported Location Back Intensity 7 Scale Used Numeric (0 - 10) Description Sharp Pain Behaviors Facial Grimacing,Guarding Pain Management Techniques Re-positioning M4 PT-IP Mobility and Gait Start: 01/07/20 16:12 Freq: NEEDED Status: Active Protocol: Document 01/09/20 10:14 KS (Rec: 01/09/20 12:14 KS [id number]) PT-Bed Mobility Assessment Rolling Type of Rolling Log Rolling,Roll to Right Level of Assist Standby Assistance,1 Person Assistance Supine to Sit Supine to Sit Standby Assistance,1 Person Assistance Scooting Scooting to Edge of Bed Standby Assistance PT-Transfer Assessment Sit to and From Stand Sit to and from Stand Contact Guard Assistance,Use of Upper Extremities Equipment Transfer Assistive Device Gait Belt,Front Wheeled Walker Orthotic/Prosthetic Devices or Brace: No Transfers Transfer Destination Chair,Toilet Transfer Technique pt ambulated with FWW Transfer Ability Level of Assist Contact Guard Assistance,Use of Upper Extremities Comments Mobility Comments Pt in chair upon arrival from therapy. SBA for scooting to EOC and CGA for sit<>stand from chair. Pt then ambulated w/ FWW CGA to toilet and stand <>sit<>stand from toilet CGA. Pt then ambulated to bed and stand<>sit and performed logroll into and out of bed SBA w/ proper technique. Pt sit<>stand from bed and ambulated ~75ft in hallway w/ FWW and CGA and continues to have decreased foot clearance and stride length. Pt requires cues for upright posture throughout ambulation and c/o 7/10 pain during mobility. Pt returned to chair CGA, left w/ all needs in reach. Gait Assessment Gait Gait Assistance Required: Contact Guard Assist Distance (Feet) 75 Able to Maintain Weight Bearing Status Yes During Gait Assistive Devices Assistive Device Gait Belt,Front Wheeled Walker Orthotic/Prosthetic Devices or Brace: No Gait Deviations General Gait Pattern Antalgic,Decreased Stride Length,Decreased Feet Clearance,Flexed Trunk,Step-to Gait Factors Limiting Gait Function Factors Limiting Gait Function Decreased Activity Tolerance, Decreased Sensation,Decreased Strength,Difficulty Following Directions,Pain,Poor Balance, Poor Safety Awareness Comments Gait Comments Please refer to mobility section for details. Stair Climbing Assessment Comments Stair Climbing Comments Not assessed. PT-Balance Assessment Sitting Balance and Reactions Static Sitting Balance Ability Good Dynamic Sitting Balance Ability Good Standing Balance and Reactions Static Standing Balance Ability Good Dynamic Standing Balance Ability Fair Device Used FWW M5 PT-IP Objective Assessments Start: 01/07/20 16:12 Freq: NEEDED Status: Active Protocol: Document 01/07/20 16:42 AW (Rec: 01/07/20 17:06 AW [id number]) Orientation Orientation/Cognition Level of Alertness Lethargic Orientation Name,Date,Place,Situation Language Function Ability No Deficits Noted Safety Awareness Decreased Safety Awareness Memory Description No Deficits Noted Gross Range of Motion Lower Extremity ROM Assessment Within Functional Limits Strength Lower Extremity Strength Assessment Bilaterally Impaired Comments Strength Comments B LE grossly 4/5 compared with 4+/5 on previous assessment Coordination Assessment Gross Coordination Gross Coordination WNL Sensation Assessment Sensation Gross Sensation Right LE Impaired,Left LE Impaired Light Touch Impaired Muscle Tone Muscle Tone WNL Yes M6 PT-IP Treatment Start: 01/07/20 16:12 Freq: NEEDED Status: Active Protocol: Document 01/09/20 10:14 KS (Rec: 01/09/20 12:14 KS [id number]) Physical Therapy Treatment Education Education Provided Precautions,Weight Bearing Status,Safety M7 PT-IP Assessment and Plan Start: 01/07/20 16:12 Freq: NEEDED Status: Active Protocol: Document 01/09/20 10:14 KS (Rec: 01/09/20 12:14 KS [id number]) PT Summary Assessment and Plan Potential Rehabilitation Potential Good Status of Condition at Evaluation Evolving Summary Impairments Pain,ROM,Strength,Balance, Sensation,Bed Mobility, Transfers,Gait,Activity Tolerance Assessment Summary Pt SBA for logroll into and out of bed as well as scooting to EOB. CGA for sit<>stand and ambulation w/ FWW. Pt continues to be limited by high pain and requires frequent cues for upright posture when ambulating. Pt may benefit from HHPT to improve ambulation and tolerance for activity. Goals Bed Mobility Goal Standby Assistance Transfer Goal Standby Assistance,Front Wheeled Walker Gait Goal Standby Assistance,Front Wheel Walker Gait Distance 200 Days to Meet Goals 3 Frequency of Treatment Frequency Of Treatment Twice a Day Treatment Plan Physical Therapy Treatment Plan Bed Mobility Training,Transfer Training,Gait Training, Therapeutic Exercise,Balance Retraining,Post Op Education, Discharge Planning,Hot or Cold Pack Other Recommendations and Next Treatment review precautions, log roll, Focus progress gait with FWW or LRAD Recommendations To Nursing Amount of Assist Needed 1 Person Assist Discharge Recommendations PT Discharge Recommendations Home with Assistance,Home Health Transportation Needs at Discharge Private Vehicle
[2020-01-09] MEDS: MAGNESIUM HYDROXIDE 30 ML UDC PO (12:11)
[2020-01-09] MEDS: DEXAMETHASONE 4 MG/ML VIAL IV ×3 (12:12→23:32)
--- NOTE | 2020-01-09 13:36 | PC.NURSE ---
Addendum entered by Benita Fletcher R.N. 01/09/20 13:55: No BM in 2 days, las 7/9. Discussed PRN options, agreed to start with MOM, and will consider NM Dulcolax if no success. Original Note: Day shift note: Patient ambulated in hallway with PT, ambulated greater distance than previous day. States pain 5/10 during activity, which is tolerable for patient. This AM, prior to Decadron dose pain 7/10 at rest. Improved pain control and mobility noted. Calls appropriately for staff assist.
--- NOTE | 2020-01-09 13:44 | PT.IPTN ---
Current Diagnoses Spinal stenosis, lumbar region with neurogenic claudication (01/07/20) Other specified postprocedural states (01/07/20) Surgery Performed Operation Date: 01/07/20 07:45 Actual Procedures p L2-4 laminectomies, revision L4-S1 laminectomies, L4-S1 instrumented fusion w/bone graft(Not Applicable) - Steve Adames MD Physical Therapy Treatment Note M2 PT-IP Current Condition Start: 01/07/20 16:12 Freq: NEEDED Status: Active Protocol: Document 01/07/20 16:42 AW (Rec: 01/07/20 17:06 AW [id number]) Physical Therapy Current Condition Current Condition Evaluation Date 01/07/20 Treatment Diagnosis L2-3 L4-5 lami, L4-5 L5-S1 TLIF; impaired mobility Onset Date 01/07/20 Precautions Lumbar Precautions Log Roll,No Twisting,Limit Bending,Lifting Restriction of 10 lbs,Gait Belt above Incisional Area Other Precautions ACDF on 11/23 M3 PT-IP Subjective Start: 01/07/20 16:12 Freq: NEEDED Status: Active Protocol: Document 01/09/20 13:26 KS (Rec: 01/09/20 14:03 KS [id number]) Subjective Physical Therapy Visit Type Type Treatment Note Visit Start Time 13:26 Visit Stop Time 13:44 Total Visit Minutes 18 Number of MATERIAL HANDLING EQUIPMENT STEVEDORE Visits 3 Physical Therapy Visit Comments Patient Comments Pt agreeable to work w/ therapy. Therapy Pain Assessment Pain When Pain Assessed During Mobility Pain Present Pain Present Pain Reported Location Back Intensity 5 Scale Used Numeric (0 - 10) Description Aching,Tightness Pain Behaviors Facial Grimacing,Guarding Pain Management Techniques Re-positioning M4 PT-IP Mobility and Gait Start: 01/07/20 16:12 Freq: NEEDED Status: Active Protocol: Document 01/09/20 13:26 KS (Rec: 01/09/20 14:03 KS [id number]) PT-Bed Mobility Assessment Scooting Scooting to Edge of Bed Standby Assistance PT-Transfer Assessment Sit to and From Stand Sit to and from Stand Contact Guard Assistance,Use of Upper Extremities Equipment Transfer Assistive Device Gait Belt,Front Wheeled Walker Orthotic/Prosthetic Devices or Brace: No Transfers Transfer Destination Chair Transfer Technique pt ambulated with FWW Transfer Ability Level of Assist Contact Guard Assistance,Use of Upper Extremities Comments Mobility Comments Pt in chair upon arrival from therapy. SBA for scooting to edge of chair and CGA for sit< >stand from chair. Pt then performed 2 min weight shifting and marching in place before ambulation. Pt improved ambulation distance to ~120 ft today w/ FWW and CGA. Pt reported 5/10 pain w/ ambulation. Returned to room and performed hair brushing at sink, able to remain balanced w/o use of BUE ~3 min. Pt returned to chair CGA and left in room w/ SOFTWARE CONSULTANT. Gait Assessment Gait Gait Assistance Required: Contact Guard Assist Distance (Feet) 120 Able to Maintain Weight Bearing Status Yes During Gait Assistive Devices Assistive Device Gait Belt,Front Wheeled Walker Orthotic/Prosthetic Devices or Brace: No Gait Deviations General Gait Pattern Antalgic,Decreased Stride Length,Decreased Feet Clearance,Flexed Trunk,Step-to Gait Factors Limiting Gait Function Factors Limiting Gait Function Decreased Activity Tolerance, Decreased Sensation,Decreased Strength,Difficulty Following Directions,Pain,Poor Balance, Poor Safety Awareness Comments Gait Comments Pt able to tolerate ~120 ft ambulation w/ FWW and CGA. Pt continues to ambulate slowly w / decreased foot clearance and requires cues to avoid twisting. Stair Climbing Assessment Comments Stair Climbing Comments Not assessed. PT-Balance Assessment Sitting Balance and Reactions Static Sitting Balance Ability Good Dynamic Sitting Balance Ability Good Standing Balance and Reactions Static Standing Balance Ability Good Dynamic Standing Balance Ability Fair Device Used FWW M5 PT-IP Objective Assessments Start: 01/07/20 16:12 Freq: NEEDED Status: Active Protocol: Document 01/07/20 16:42 AW (Rec: 01/07/20 17:06 AW [id number]) Orientation Orientation/Cognition Level of Alertness Lethargic Orientation Name,Date,Place,Situation Language Function Ability No Deficits Noted Safety Awareness Decreased Safety Awareness Memory Description No Deficits Noted Gross Range of Motion Lower Extremity ROM Assessment Within Functional Limits Strength Lower Extremity Strength Assessment Bilaterally Impaired Comments Strength Comments B LE grossly 4/5 compared with 4+/5 on previous assessment Coordination Assessment Gross Coordination Gross Coordination WNL Sensation Assessment Sensation Gross Sensation Right LE Impaired,Left LE Impaired Light Touch Impaired Muscle Tone Muscle Tone WNL Yes M6 PT-IP Treatment Start: 01/07/20 16:12 Freq: NEEDED Status: Active Protocol: Document 01/09/20 13:26 KS (Rec: 01/09/20 14:03 KS [id number]) Physical Therapy Treatment Education Education Provided Precautions,Weight Bearing Status,Safety Other Treatments Other Treatment Performed Weight shifting, marching in place, balance w/o use of UE. M7 PT-IP Assessment and Plan Start: 01/07/20 16:12 Freq: NEEDED Status: Active Protocol: Document 01/09/20 13:26 KS (Rec: 01/09/20 14:03 KS [id number]) PT Summary Assessment and Plan Potential Rehabilitation Potential Good Status of Condition at Evaluation Evolving Summary Impairments Pain,ROM,Strength,Balance, Sensation,Bed Mobility, Transfers,Gait,Activity Tolerance Progress Towards Goals Progressing Toward Goals,Slow Progress due to Pain Assessment Summary Pt SBA for scooting, CGA for sit stand from chair w/ FWW. Able to tolerate 2 min weight shifting and marching in place followed by ~120 ft ambulation w/ FWW and CGA. Cues for upright posture and avoidance of twisting. Pt able to remain balanced at sink w/ o UE support ~3 min to perform hair brushing. Pt reported less pain this treatment following steroid injection. Goals Bed Mobility Goal Standby Assistance Transfer Goal Standby Assistance,Front Wheeled Walker Gait Goal Standby Assistance,Front Wheel Walker Gait Distance 200 Days to Meet Goals 3 Frequency of Treatment Frequency Of Treatment Twice a Day Treatment Plan Physical Therapy Treatment Plan Bed Mobility Training,Transfer Training,Gait Training, Therapeutic Exercise,Balance Retraining,Post Op Education, Discharge Planning,Hot or Cold Pack Other Recommendations and Next Treatment review precautions, log roll, Focus progress gait with FWW or LRAD Recommendations To Nursing Amount of Assist Needed 1 Person Assist Discharge Recommendations PT Discharge Recommendations Home with Assistance,Home Health Transportation Needs at Discharge Private Vehicle
--- NOTE | 2020-01-09 15:27 | CM.DANOTE ---
Patient is a 69 year old male who was admitted on 01/07/20 for back surgery. Pt has [facility] and [employer] for insurance and his PCP is Dr. Johanna Rascon. EMR was reviewed. Per Ortho MD, pt tolerated procedure well and may be stable for d/c tomorrow Saturday. Per PT, pt resides at home with spouse who can assist and recommending home with assist and HH. SW met bedside with pt and explained role and pt confirms he lives at home with and 102 yo mother that they take care of and pt is independent with ADL's and drives at baseline. Pt denies any hx of HH or SNF and SW discussed HH recommendation and their services and frequency and pt confirms he would be agreeable to HH and no HH preference. SW made HH referral to [facility] and called requesting review for likely d/c tomorrow if stable. F2F and orders will be needed. Plan: SW to follow for [facility] review and need for signed F2F completed for likely d/c home with spouse tomorrow if stable. JESSICA Caldwell Discharge Planning/Care Management CM Discharge Assessment Start: 01/09/20 15:26 Freq: Status: Active Protocol: Document 01/09/20 15:26 BF (Rec: 01/09/20 15:27 BF [id number]) Discharge Planning Assessment Assigned Crossing Tender JESSICA Huang Advance Directives? No Advance Directives on File No History Provided By Patient,Medical Record Has Patient been admitted in last 30 No days? Prior Living Arrangements House Household Members spouse,family Type of transporation used prior to Drives own vehicle admit Independent with ADL's Yes Is patient alert and oriented? Yes Caregiver for Another Yes: 102 yr old mother Patient/Family Preference Home with Home Health Barriers to Discharge No Comment Unclear at this time. Patient off floor for surgery today C3 -[address] Adames. Discharge Plan Home with Home Health Transportation Arrangement Family Referrals Initiated Home Health Review Status In Process Please Provide Date Initial DC 01/09/20 Assessment Was Performed Next Review Type Continued Stay Review Pre-Anesthesia Assessment Start: 12/31/19 08:16 Freq: Status: Complete Protocol: Document 12/31/19 08:16 CAB (Rec: 12/31/19 08:21 CAB [id number]) Pre-Anesthesia Assessment PAC Comment S/P C3-4 cervical fusion , pt declines PAC phone assess, chart review only Preferred Name Mike Patient Information Reviewed Via Chart Review Comment Outside labs 09/07/19 scanned to record - COVID screen @ [facility] 01/04/20 Primary Care Provider Johanna Rascon Seen Specialist in Last 12 Months Yes Specialist Seen Orthopedist Primary Language [place] Preferred Language [place] Roofing Subcontractor Required No Height 167.64 cm Weight 70.76 kg Body Mass Index (BMI) 25.2 Hearing Ability Normal Visual Impairment No Limitations Visual Assist None Dentition Type Teeth, Natural Present Barriers to Learning None Other Aids No Hx Anesthesia Reactions No Hx Family Anesthesia Reaction No Hx Malignant Hyperthermia No Hx Blood Transfusions No Hx Blood Transfusion Reaction No Anesthesia Review Requested No alcohol intake current alcohol intake frequency 3 or more drinks per day Smoking Status Former smoker how long ago did patient quit smoking Quit during [place] Substance Use Type marijuana Comment Marijuana salve Pain Present Pain Reported Musculoskeletal Symptoms Back Pain,Joint Pain,Limited Range of Motion,Neck Pain, Numbness,Radiating Pain into Limb History of Falling (Recent or History of No ) Patient is completely paralyzed or No completely immobile Mental Status Oriented to own ability Is patient on oxygen? No Does patient have HERRMANN/SOB No Hx Sleep Apnea No CPAP/BIPAP use not prescribed Currently Taking a Beta Haily No Can You Climb a Flight of Stairs Without Yes SOB Hx Chest Pain No Hx SOB No Hx Syncope or Dizziness Yes: Dizziness r/t neck nerve compression with quick movements Anti-Coagulant Therapy No Has a Sole Painter No Cardiac Testing No Hx Pacemaker/ICD No Pacemaker Rep Required? No Cardiac Clearance Received Not Applicable Diet Type At Home Vegetarian dysphagia No: No fish Genitourinary Symptoms Dribbling Bladder Pattern Incontinent Urinary Catheter Present No Hx Urinary Self Catheterization No Diabetes No Hx Drug Resistant Organism No Presence of External or Internal Medical Yes: RT hip prosthesis, Devices cervical hardware Have you had any close contact with Unknown someone diagnosed with COVID-19? Marital Status Lives With spouse,family Prior Living Arrangements House Number of Floors (Floors) Two Floors Support System Spouse Does the Patient Have Assistance After Yes Surgery Patient Discharge Plan Description Return Home Feels Safe in Current Environment Yes Been Physically Hurt or Threatened By a No Person in Current Environment Do you have thoughts of harming yourself None or others? Are you currently considering suicide? No Do you have a plan to hurt yourself or No Plan others? Do You Have Any Spiritual Beliefs That No May Affect Your HC Choices? Do You Have Any Cultural Practices That No May Affect Your HC Choices? Who Can We Speak to About Patient's Care Family, friends Identifying Code for Release of Patient Declines to issue Information Health Care Proxy/Next of Kin Tasha () Health Care Proxy Emergency Contact Name Tasha () Emergency Contact Advance Directives? No Power of Gem Stone Cutter No
[2020-01-09] MEDS: SENNOSIDES 8.6 MG TABLET 17.2 MG PO (20:55)
[2020-01-09] MEDS: GABAPENTIN 300 MG CAPSULE PO (20:55)
--- NOTE | 2020-01-09 22:42 | PC.NURSE ---
Assumed care of pt at 1500. Pt resting in chair during bedside hand-off. A/O. Drsg clean and dry. R. Lower corner rollup up slightly; reinforced with tape. Pt using urinal in chair and ambulating to bathroom, 1 PA w/fww. Steady on feet. Calling appropriately for needs.
[2020-01-10 00:20] VITALS: BP 131/52; PULSE 71; RESP 16; TEMP 36.3; O2SAT 96
--- NOTE | 2020-01-10 01:30 | PC.NURSE ---
Patient seen and assessed at 2335. Is alert and oriented. Breath sounds CTA with RA sat of 96%. HRR. Denies nausea. BT present and is passing flatus. Voiding per urinal; denies dysuria, frequency or urgency. Is able to turn himself in bed. Dressing to back is CDI. When out of bed uses walker and 1 assist for safety. Does complain of 3/10 achy back pain which increases with movement but states it is tolerable; declined ice pack. States the IV Decadron has helped quite a bit with the back pain. Continues to refuse to wear the SCD's despite education re: DVT prevention. Fall risk score is high and bed alarm is activated.
[2020-01-10 04:06] VITALS: BP 123/60; PULSE 51; RESP 18; TEMP 35.7; O2SAT 99
[2020-01-10] MEDS: DEXAMETHASONE 4 MG/ML VIAL IV (05:36)
[2020-01-10] MEDS: OXYCODONE IR 5 MG TABLET PO (05:37)
[2020-01-10] MEDS: SODIUM CHLORIDE 0.9% FLUSH 10 ML IV ×2 (05:37→08:54)
--- NOTE | 2020-01-10 07:23 | PM.PNPO.1 ---
Subjective Subjective Date Patient Seen: 01/10/20 Time Patient Seen: 07:23 Interval history: He is doing much better. Pain is about 2/10. Able to get up and move around independently Exam Vital Signs (past 8 hours): - 01/10/20 00:20 01/10/20 04:06 Temperature 97.3 F L 96.3 F L Pulse Rate 71 51 L Respiratory Rate 16 18 Blood Pressure 131/52 L 123/60 Pulse Oximetry 96 99 Oxygen Delivery Method Room Air Oxygen Flow Rate 0 Const Orientation: alert and oriented x3 Back/Spine/Pelvis Other: Minimal drainage. 5/5 motor both lower extremities. Objective Labs Result Diagrams: 01/08/20 05:45 Assessment & Plan Post-op Postoperative Procedures: Procedures Operation Date: 01/07/20 07:45 Actual Procedures Side Surgeon p L2-4 laminectomies, revision L4-S1 laminectomies, L4-S1 instrumented fusion w/bone graft Not Applicable Steve Adames MD he is doing much better today. Plan to discharge home
--- NOTE | 2020-01-10 07:24 | PM.DS.1 ---
History of Present Illness History of Present Illness Date Patient Seen: 01/10/20 Time Patient Seen: 07:25 Chief complaint: [id number] Narrative: 69-year-old male with pain down the legs. Has a history of a previous laminectomy and was doing well until past 6 months. He began getting significant pain running down the posterolateral aspect of the legs with every tried walk. No relief with injections or therapy. He also had significant cervical stenosis and this was treated with a revision surgery and ACDF 6 weeks ago. He recovered from the cervical surgery and was ready for the lumbar surgery. Discharge Providers Provider Date of admission: 01/07/20 06:26 Discharge Date: 01/10/20 Primary care physician: Johanna Rascon PA-C Consults: 01/07/20 13:10 Consult to Occupational Therapy Evaluate & Treat Comment: Physician Instructions: Evaluate and treat Consult to Physical Therapy Evaluate & Treat Comment: Physician Instructions: Evaluate and Treat Discharge provider: Steve Adames MD Summary Hospital Course Discharge Diagnosis: Lumbar stenosis with radiculopathy History of lumbar laminectomy Hospital Course: He was brought to the operating room on 01/07/2020 where he underwent L2 through S1 laminectomies and instrumented fusion from L4 through S1. Postoperatively he was having significant issues with pain and limited mobility. He initially only had back pain but then began getting some leg pain as well. He was placed on a round of IV steroids and all of this resolved and his pain greatly diminished. He was up and moving well with physical therapy independently. Status at Discharge Cognitive/behavioral status at discharge: oriented Functional status at discharge: uses cane/walker Overall status at discharge: patient is progressing back to baseline Exam Vital Signs (past 8 hours): - 01/10/20 00:20 01/10/20 04:06 Temperature 97.3 F L 96.3 F L Pulse Rate 71 51 L Respiratory Rate 16 18 Blood Pressure 131/52 L 123/60 Pulse Oximetry 96 99 Oxygen Delivery Method Room Air Oxygen Flow Rate 0 Const Orientation: alert and oriented x3 Back/Spine/Pelvis Other: Minimal drainage. 5/5 motor both lower extremities. Objective Labs Result Diagrams: 01/08/20 05:45 Discharge Plan Discharge Plan Patient Disposition: Home Discharge comment: f/u 1 wk Discharge orders & Medications Prescriptions: New celecoxib [Celebrex] 200 mg Capsule 200 mg PO BID PRN (Reason: pain) Qty: 60 RF: 0 docusate sodium [DOK] 100 mg Capsule 100 mg PO BID PRN (Reason: constipation) Qty: 40 RF: 0 hydroxyzine pamoate 25 mg Capsule 25 mg PO Q4HR PRN (Reason: spasms) Qty: 30 RF: 0 oxycodone 5 mg Tablet See Rx Instructions .ROUTE .COMPLEX PRN (Reason: Pain, Moderate (4-6)) Qty: 45 RF: 0 Continued lisinopril 20 MG tablet 20 mg PO QDAY Qty: 0 RF: 0 Discontinued oxycodone-acetaminophen 5-325 mg Tablet 1 tab PO Q4HR PRN (Reason: Pain, Moderate (4-6)) Qty: 20 RF: 0 Follow up/Referrals: Johanna Rascon PA-C [Primary Care Provider] - Discharge Health Status Multidrug resistant organism: No MDRO Diet/Activity/Treatments Diet: Diet as Tolerated Activity: limited BLT 10 lbs max lift Skin/Wound/Dressing Care Report to your healthcare provider any signs of infection, such as:: chills, fever, night sweats, increased pain, unusual drainage and unusual redness Dressing: May change dressing and shower on Saturday. Replaced with clean dressing when done Visit Report/Discharge Packet Instructions: DI for Prescription Opioid Use, DI for Transforaminal Lumbar Interbody Fusion Stand Alone Forms: Surgery Discharge Discharge Data Primary Care Provider: Johanna Rascon
[2020-01-10 08:00] VITALS: BP 111/72; PULSE 63; RESP 18; TEMP 36.1; O2SAT 96
[2020-01-10] MEDS: DOCUSATE 100 MG CAPSULE PO (08:53)
[2020-01-10] MEDS: CELECOXIB 200 MG CAPSULE PO (08:53)
--- NOTE | 2020-01-10 10:18 | PT.IPTN ---
Current Diagnoses Spinal stenosis, lumbar region with neurogenic claudication (01/07/20) Other specified postprocedural states (01/07/20) Surgery Performed Operation Date: 01/07/20 07:45 Actual Procedures p L2-4 laminectomies, revision L4-S1 laminectomies, L4-S1 instrumented fusion w/bone graft(Not Applicable) - Steve Adames MD Physical Therapy Treatment Note M2 PT-IP Current Condition Start: 01/07/20 16:12 Freq: NEEDED Status: Active Protocol: Document 01/07/20 16:42 AW (Rec: 01/07/20 17:06 AW [id number]) Physical Therapy Current Condition Current Condition Evaluation Date 01/07/20 Treatment Diagnosis L2-3 L4-5 lami, L4-5 L5-S1 TLIF; impaired mobility Onset Date 01/07/20 Precautions Lumbar Precautions Log Roll,No Twisting,Limit Bending,Lifting Restriction of 10 lbs,Gait Belt above Incisional Area Other Precautions ACDF on 11/23 M3 PT-IP Subjective Start: 01/07/20 16:12 Freq: NEEDED Status: Active Protocol: Document 01/10/20 10:09 AW (Rec: 01/10/20 10:18 AW [id number]) Subjective Physical Therapy Visit Type Type Treatment Note Visit Start Time 09:08 Visit Stop Time 09:21 Total Visit Minutes 13 Number of OCCUPATIONAL THERAPIST AIDE Visits 0 Physical Therapy Visit Comments Patient Comments Pt preparing for discharge Therapy Pain Assessment Pain When Pain Assessed During Mobility Pain Present Pain Present Allowed to Sleep Location Back Intensity 3 Scale Used Numeric (0 - 10) Pain Management Techniques Distraction,Timing of Activity with Medications M4 PT-IP Mobility and Gait Start: 01/07/20 16:12 Freq: NEEDED Status: Active Protocol: Document 01/10/20 10:09 AW (Rec: 01/10/20 10:18 AW [id number]) PT-Transfer Assessment Sit to and From Stand Sit to and from Stand Standby Assistance,Use of Upper Extremities Equipment Transfer Assistive Device Gait Belt,Front Wheeled Walker Orthotic/Prosthetic Devices or Brace: No Transfers Transfer Destination Chair Transfer Technique pt ambulated with FWW Transfer Ability Level of Assist Standby Assistance,Use of Upper Extremities Comments Mobility Comments Pt in chair after finishing in the shower when PT arrived. This PT took over from GROCERY CASHIER as stood from the chair SBA and ambulated with FWW to the sink . Pt was able to stand at the sink without support as he completed grooming tasks ~4 minutes. Pt donned a shirt and then ambulated in the hallway with FWW SBA before returning to the room and transferring back to the chair. Gait Assessment Gait Gait Assistance Required: Standby Assistance,1 Person Assist Distance (Feet) 220 Able to Maintain Weight Bearing Status Yes During Gait Assistive Devices Assistive Device Gait Belt,Front Wheeled Walker Orthotic/Prosthetic Devices or Brace: No Gait Deviations General Gait Pattern Antalgic,Decreased Feet Clearance,Flexed Trunk Factors Limiting Gait Function Factors Limiting Gait Function Decreased Activity Tolerance, Decreased Sensation,Decreased Strength,Difficulty Following Directions,Pain,Poor Balance, Poor Safety Awareness Comments Gait Comments Pt ambulated 220 feet in the hallways with FWW SBA but did require multiple cues to keep his shoulders in line with his hips in order to avoid twisting. After multiple cues, this PT asked the pt to look at a piece of artwork he had already passed and he successfully turned using the FWW without twisting his trunk . Stair Climbing Assessment Comments Stair Climbing Comments No need to navigate stairs at home. M5 PT-IP Objective Assessments Start: 01/07/20 16:12 Freq: NEEDED Status: Active Protocol: Document 01/07/20 16:42 AW (Rec: 01/07/20 17:06 AW [id number]) Orientation Orientation/Cognition Level of Alertness Lethargic Orientation Name,Date,Place,Situation Language Function Ability No Deficits Noted Safety Awareness Decreased Safety Awareness Memory Description No Deficits Noted Gross Range of Motion Lower Extremity ROM Assessment Within Functional Limits Strength Lower Extremity Strength Assessment Bilaterally Impaired Comments Strength Comments B LE grossly 4/5 compared with 4+/5 on previous assessment Coordination Assessment Gross Coordination Gross Coordination WNL Sensation Assessment Sensation Gross Sensation Right LE Impaired,Left LE Impaired Light Touch Impaired Muscle Tone Muscle Tone WNL Yes M6 PT-IP Treatment Start: 01/07/20 16:12 Freq: NEEDED Status: Active Protocol: Document 01/10/20 10:09 AW (Rec: 01/10/20 10:18 AW [id number]) Physical Therapy Treatment Education Education Provided Precautions,Weight Bearing Status,Safety Other Treatments Other Treatment Performed Weight shifting, marching in place, balance w/o use of UE. M7 PT-IP Assessment and Plan Start: 01/07/20 16:12 Freq: NEEDED Status: Active Protocol: Document 01/10/20 10:09 AW (Rec: 01/10/20 10:18 AW [id number]) PT Summary Assessment and Plan Potential Rehabilitation Potential Good Status of Condition at Evaluation Stable Summary Impairments Pain,ROM,Strength,Balance, Sensation,Bed Mobility, Transfers,Gait,Activity Tolerance Progress Towards Goals Progressing Toward Goals Assessment Summary Pt SBA for all mobility this AM but continues to require verbal cues to avoid twisting during ambulation with FWW. Pt is safe to discharge to home environment with assist. Goals Bed Mobility Goal Standby Assistance Transfer Goal Standby Assistance,Front Wheeled Walker Gait Goal Standby Assistance,Front Wheel Walker Gait Distance 200 Days to Meet Goals 1 Frequency of Treatment Frequency Of Treatment Twice a Day Treatment Plan Physical Therapy Treatment Plan Bed Mobility Training,Transfer Training,Gait Training, Therapeutic Exercise,Balance Retraining,Post Op Education, Discharge Planning,Hot or Cold Pack Other Recommendations and Next Treatment review precautions, log roll, Focus progress gait with FWW or LRAD Recommendations To Nursing Amount of Assist Needed Standby Assistance Discharge Recommendations PT Discharge Recommendations Home with Assistance,Home Health Transportation Needs at Discharge Private Vehicle
--- NOTE | 2020-01-10 10:47 | CM.DPC ---
DCP continues: CM/Rn called Dr. Adames [phone] and asked if he would be okay with HH since PT recommened it as well as patient requested HH services. Dr. Adames gave verbal order for HH consult to be placed and F2F will be faxed to his office for him to sign and fax to [facility] tomorrow. D/C summary faxed along with order. patient updated and stated understanding. Blanca Basurto RN.
--- NOTE | 2020-01-10 11:05 | PC.NURSE ---
Patient is going to discharge home. His back dressing is cdi and was changed to a cover site. Patient showered and is waiting for his ride to get here. Independent in room. Denies any numbness or tingling.
== END 2020-01-10 11:50 | disposition home or self-care (01) ==
LOC: AC 01-10 11:09 → OR 01-10 12:21 → AC 01-10 12:24
PROVIDERS: Admitting Provider Orthopaedic Surgery; PCP Physician Assistant; Referring Provider Orthopaedic Surgery; Visit Provider Orthopaedic Surgery
PROC: (CPT 22633; principal; 2020-01-07 07:45)
DX: M48.062 Spinal stenosis, lumbar region with neurogenic claudication (principal); M43.16 Spondylolisthesis, lumbar region; M54.16 Radiculopathy, lumbar region; I10 Essential (primary) hypertension; Z11.59 Encounter for screening for other viral diseases; Z01.812 Encounter for preprocedural laboratory examination; Z98.890 Other specified postprocedural states
CPT/HCPCS: 22633; 63044; 63048; 22634; 22842; 22853 ×2; 20939; 63047; 63042; 36415; 72100; 76000; 85014; 85018; 87635; 94762; 97110; 97116; 97161; 97165; C1776; G0378; J0330; J0595; J0690; J1100; J1170; J2274; J2405; J2704; J3010

== ENCOUNTER → 2021-04-17 15:18 | Outpatient (CLI) | payer MEDICARE, SELFPAY ==
[2020-01-07 13:34] VITALS: BMI 25.4
--- NOTE | 2021-04-17 15:20 | DI.MRI.S_ITS ---
PROCEDURE: MR CERVICAL SPINE WO CON INDICATIONS: SPINAL STENOSIS,CERVICAL REGION TECHNIQUE: Noncontrast sagittal T1 spin echo and T2 fast spin echo, sagittal STIR, foraminal oblique sagittal T2 fast spin echo, and axial gradient echo or T2 fast spin echo through the cervical spine. COMPARISON: [facility] Outside Film, CT, CT CERVICAL SPINE WITHOUT CONTRAST, 08/04/2020, 14:54. CT, CT CERVICAL SPINE WO CON, 11/27/2018, 11:49. [facility] [place], CR, XR CERVICAL SPINE 2 OR 3 VIEWS, 05/11/2020, 16:16. FINDINGS: Image quality: Excellent. Alignment and Curvature: There is mild, approximately 2-3 millimeters of C3-C4 anterolisthesis. There is reversal normal cervical spine curvature. Bones: Postsurgical changes compatible with C3-C4 ACDF noted. Reactive endplate changes noted adjacent to the C3-C4, C5-C6 and C6-C7 discs. Spinal Cord: Visualized spinal cord has normal size and signal. No cerebellar tonsillar herniation. Paraspinous Soft Tissues: No paravertebral masses. Prevertebral soft tissues are normal in thickness. C2-C3: Loss of disc signal. Mild right and severe left facet hypertrophy. No central stenosis. At moderate bilateral neural foraminal narrowing. No neural compression. C3-C4: Status post discectomy and anterior fusion. Severe bilateral facet hypertrophy. Mild narrowing of the central canal. Moderate right and severe left neural foraminal narrowing with compression of the exiting left C4 nerve root. C4-C5: Loss of disc signal. Severe right mild left facet hypertrophy. Moderate right uncovertebral joint hypertrophy. Severe right and moderate left neural foraminal narrowing with compression of the exiting right C5 nerve root. C5-C6: Loss of disc signal and height. Mild, diffuse disc bulge. Mild bilateral facet hypertrophy. Mild bilateral uncovertebral joint hypertrophy. At the moderate narrowing of the central canal. Moderate right and severe left neural foraminal narrowing with compression of the exiting left C6 nerve root. C6-C7: Loss of disc signal and height. Mild, diffuse disc bulge. Mild bilateral facet hypertrophy. Mild bilateral uncovertebral joint hypertrophy. Mild narrowing of the central canal. Mild right and severe left neural foraminal narrowing with compression of the exiting left C7 nerve root. C7-T1: Loss of disc signal. Mild bilateral facet hypertrophy. No central stenosis. Mild bilateral neural foraminal narrowing. No neural compression. IMPRESSION: 1. Status post C3-C4 ACDF. 2. Multilevel degenerative disc disease. 3. Multilevel facet arthropathy. 4. No severe central canal narrowing. 5. Severe left C3-C4 and C5-C6 neural foraminal narrowing with compression of the exiting left C4 and C6 nerve roots. Severe right C4-C5 neural foraminal narrowing with compression of the exiting right C5 nerve root . Dictated by: Miryam Connell MD, PhD on 04/17/2021 at 16:25 Approved by: Miryam Connell MD, PhD on 04/17/2021 at 16:57
== END ==
PROVIDERS: PCP Physician Assistant; Referring Provider Physical Medicine & Rehabilitation; Visit Provider Physical Medicine & Rehabilitation
DX: M48.02 Spinal stenosis, cervical region (principal); M47.812 Spondylosis without myelopathy or radiculopathy, cervical region; M50.322 Other cervical disc degeneration at C5-C6 level; Z98.1 Arthrodesis status
CPT/HCPCS: 72141

== ENCOUNTER → 2021-07-31 11:45 | Outpatient (CLI) | payer MEDICARE, SELFPAY ==
[2020-01-07 13:34] VITALS: BMI 25.4
[2021-07-31 13:15] LABS: COVID19 -Nasal RAPID Negative (Negative)
== END ==
PROVIDERS: PCP Physician Assistant; Referring Provider Family Medicine Sleep Medicine; Visit Provider Family Medicine Sleep Medicine
DX: Z20.822 Contact with and (suspected) exposure to COVID-19 (principal)
CPT/HCPCS: 87635; C9803

== ENCOUNTER → 2021-08-01 07:36 | Outpatient (CLI) | payer MEDICARE, SELFPAY ==
[2020-01-07 13:34] VITALS: BMI 25.4
--- NOTE | 2021-08-01 | DI.RAD.S_ITS ---
PROCEDURE: XR CHEST 2V INDICATIONS: PREPRCEDURAL TESTING TECHNIQUE: 2 views of the chest were acquired. COMPARISON: [facility], CR, XR LUMBAR SPINE 2 OR 3 VIEWS, 07/20/2020, 16:21. [facility] Outside [facility], CT, CT CERVICAL SPINE WITHOUT CONTRAST, 08/04/2020, 14:54. [facility], CR, CHEST 2 VIEW, 04/05/2011, 12:09. FINDINGS: Surgical changes and devices: None. Lungs and pleura: Prominent pulmonary vasculature markings with a central predominance bilaterally. No silhouetting. No pleural effusions or pneumothorax. Mediastinum: Mediastinal contours are unchanged. Heart size is within normal limits. Bones and chest wall: No suspicious bony abnormalities. Lumbar spine hardware partially visualized. Soft tissues appear unremarkable. IMPRESSION: Suspect pulmonary vasculature engorgement. No overt fluid overload/CHF. Dictated by: Lobo Conner M.D. on 08/01/2021 at 10:02 Approved by: Lobo Conner M.D. on 08/01/2021 at 10:04
--- NOTE | 2021-08-01 | DI.NM.S_ITS ---
PROCEDURE: NM ALICIA PERF SPECT REST & STR Rest and exercise myocardial perfusion SPECT with gated imaging and ejection fraction RADIOPHARMACEUTICAL: 11.1 mCi Tc-99m sestamibi IV at rest and 26.0 mCi Tc-99m sestamibi IV at peak exercise. A [id number] was performed. INDICATIONS: PREPRCEDURAL TESTING TECHNIQUE: Radiopharmaceutical was injected at peak stress test, and also at rest. SPECT images were obtained. SPECT myocardial perfusion images were displayed in short axis, horizontal long axis, and vertical long axis views. Gated images were reviewed using Victorious software. COMPARISON: None. CARDIAC STRESS: A standard [place] treadmill exercise tolerance test was performed by the patient under the supervision of an attending staff. The patient exercised for 6 minutes and 0 seconds; functional aerobic impairment (SUSANA) is +4%. Hemodynamic data: There is normal blood pressure and heart rate response to exercise stress. Patient achieved 104% of maximum predicted heart rate at peak exercise. Maximum blood pressure 172/96. Symptoms: Patient denied chest pain during exercise. EKG: The stress ECG is not diagnostic due to artifact. FINDINGS: Raw data: There is good myocardial labeling by radiotracer. No significant motion artifacts. Wagt-zv-zccwr ratio is 0.16 (normal is less than 0.38 for sestamibi tracer, and less than 0.50 for thallium tracer). Left ventricle function: Gated images demonstrate normal left ventricle wall thickening. No segmental wall motion abnormality. No transient ischemic dilation; TID is 0.96 (normal less than 1.3). The left ventricle resting end-diastolic volume is 85 mL. Left ventricle stress ejection fraction is 72%; normal values are above 45%. Myocardial perfusion: There is a small size, mild intensity fixed apical wall defect with normal wall motion making this most consistent with apical thinning. IMPRESSION: 1. Low risk test without evidence of inducible ischemia or scar. 2. Unable to interpret stress ECG due to artifact. 3. Normal exercise capacity. 4. Normal blood pressure response to exercise. 5. Normal left ventricular ejection fraction. Dictated by: Marli Byrd D.O. on 08/01/2021 at 17:07 Approved by: Marli Byrd M.D. on 08/01/2021 at 17:13
== END ==
PROVIDERS: PCP Physician Assistant; Referring Provider Nurse Practitioner Family; Visit Provider Nurse Practitioner Family
DX: Z01.818 Encounter for other preprocedural examination (principal); R01.1 Cardiac murmur, unspecified; R55 Syncope and collapse
CPT/HCPCS: 71046; 78452; 93017; A9502

== ENCOUNTER → 2023-09-30 13:03 | Outpatient (CLI) | payer MEDICARE, SELFPAY ==
[2020-01-07 13:34] VITALS: BMI 25.4
--- NOTE | 2023-09-30 13:07 | DI.RAD.S_ITS ---
PROCEDURE: XR LUMBAR SPINE MIN 4V INDICATIONS: low back pain TECHNIQUE: 5 views of the lumbar spine were acquired, including bilateral oblique views. COMPARISON: [facility], CR, XR LUMBAR SPINE 2 OR 3 VIEWS, 07/20/2020, 16:21. [facility], CR, XR LUMBAR SPINE 2-3V, 01/07/2020, 8:20. FINDINGS: Bones: 5 nonrib-bearing vertebrae are present. Posterior fusion hardware with bilateral transpedicular screws at L4-S1 is intact with no perihardware lucency to suggest hardware loosening. Interbody disc spacers at L4-5 and L5-S1 are intact. Stable alignment with mild levoconvex curvature centered at L3-L4. No suspicious bony lesions. Partially visualized right total hip arthroplasty. Mild to moderate multilevel degenerative changes of the spine. Soft tissues: Overlying bowel gas pattern is normal. No suspicious soft tissue calcifications. Surgical clips project over the lower pelvis. Visualized lung bases are clear. Calcification of the abdominal aorta. Oblique images: No pars defects. IMPRESSION: L4-S1 posterior fusion hardware is intact without complication. Stable alignment. Dictated by: Almas Puga M.D. on 09/30/2023 at 17:34 Approved by: Almas Puga M.D. on 09/30/2023 at 17:37
== END ==
PROVIDERS: Referring Provider Anesthesiology; Visit Provider Anesthesiology
DX: M47.26 Other spondylosis with radiculopathy, lumbar region (principal); M54.50 Low back pain, unspecified; G89.29 Other chronic pain; Z98.1 Arthrodesis status
CPT/HCPCS: 72110; 99214

== ENCOUNTER 2023-10-09 09:19 | Outpatient (CLI) | payer MEDICARE, SELFPAY ==
[2020-01-07 13:34] VITALS: BMI 25.4
--- NOTE | 2023-10-09 09:22 | DI.RAD.S_ITS ---
PROCEDURE: PAIN L/S TRANSFORAMINAL INJECT INDICATIONS: radiculopathy COMPARISON: None. FINDINGS: Fluoroscopic spot filming was performed to verify placement of spinal needles at the left L3-L4 level(s), as labeled on the films. Appropriate location(s) of the needle tip(s) was confirmed by injection of iodinated contrast. IMPRESSION: Intra procedural examination demonstrating appropriate positions of the needles. Dictated by: Jordi Cabrales M.D. on 10/09/2023 at 10:45 Approved by: Jordi Cabrales M.D. on 10/09/2023 at 10:45
[2023-10-09 09:35] VITALS: BP 143/68; PULSE 68; RESP 16; TEMP 36.3; O2SAT 99
[2023-10-09 09:57] VITALS: BP 148/72; PULSE 71; RESP 14; O2SAT 100
[2023-10-09] MEDS: DEXAMETHASONE 10 MG/ML VIAL INJ (10:01)
[2023-10-09] MEDS: iopamidoL 15 ML VIAL 3 ML INJ (10:01)
[2023-10-09 10:02] VITALS: BP 147/71; PULSE 72; RESP 16; O2SAT 100
[2023-10-09 10:07] VITALS: BP 145/72; PULSE 75; RESP 18; O2SAT 100
[2023-10-09 10:11] VITALS: BP 129/87; PULSE 76; RESP 16; O2SAT 98
--- NOTE | 2023-10-09 11:12 | P.PCN_ITS ---
Date/Time/Diagnoses Date of procedure: 10/09/23 Time of procedure: 10:00 Procedure Notes Physician: Arnulfo Gray Total Fluoroscopy time (seconds): 18 Total sedation minutes: 0 Procedure in detail & Post-procedure care: Left L3-4 Transforaminal Epidural Steroid Injection Indications: iMke is presenting for treatment of lumbar radiculopathy with low back and leg pain. Preoperative diagnosis: Lumbar radiculopathy Postoperative diagnosis: Same Focused Examination: Ax3 Mood and affect are normal Vital Signs: VSS Consent: Following review of allergies and potential side effects/complications, including, but not necessarily limited to, infection, allergic reaction, local tissue breakdown, stroke, temporary or permanent nerve injury, paralysis, and possible , the patient indicated that they understood and agreed to pro ceed.? An informed consent document was signed by the patient, witnessed by a nurse and placed in the patient's chart.? Additionally, other treatment options including medications and physical therapy were reviewed with the patient. All questions were answered. Site was then marked. Anesthesia: Local Position: Prone Monitoring: NIBP, Pulse oximetry, 3 lead EKG Needle used: 22G, 3.5 inch spinal needle Contrast: Isovue 300M Injectate: 10 mg Dexamethasone mixed with 1% lidocaine 1 ml and normal saline 1 mL Technique: The skin was prepped with chloraprep and draped in a sterile fashion. Time out was performed as per protocol. Oxygen applied via NC. Skin and subcutaneous structures of the needle entry site were infiltrated with 3mL of lidocaine 1%. Under fluoroscopic guidance, using an ipsilateral oblique view,?a 22 gauge 3.5 inch needle was advanced to the base of the left L3?pedicle.? The needle was advanced to the superio-posterior aspect of the neural foramen under lateral view.? Oblique and AP views were rechecked. No paresthesias noted by the patient during needle placement. In AP view and utilizing real-time digital subtraction fluoroscopy, 2 ml contrast was slowly injected. Epidural spread was observed without evidence for intravascular nor intrathecal uptake. Contrast spread was seen craniocaudally. The above injectate was then administered without paresthesias and the needle was subsequently withdrawn. Band-Aids applied to injection sites. EBL: less than 1 ml Complications: None Post Procedure: Patient was taken to the recovery and monitored. The patient was provided a Pain Log to continue to record the patient's response to the target- specific procedure prior to the patient's follow-up visit with the referring physician. Patient was stable upon discharge. Detailed post procedure instructions were provided. Patient was asked to call in the event of worsening pain, fever, weakness, numbness or bladder or bowel incontinence.
== END 2023-10-09 10:17 | disposition home or self-care (01) ==
LOC: RAD 09:21
PROVIDERS: Referring Provider Anesthesiology; Visit Provider Anesthesiology
DX: M54.16 Radiculopathy, lumbar region (principal)
CPT/HCPCS: 64483; J1100

== ENCOUNTER 2023-12-04 14:16 | Outpatient (CLI) | payer MEDICARE, SELFPAY ==
[2020-01-07 13:34] VITALS: BMI 25.4
[2023-12-04 14:25] VITALS: BP 142/69; PULSE 89; RESP 18; TEMP 36.6; O2SAT 100
--- NOTE | 2023-12-04 15:00 | DI.RAD.S_ITS ---
PROCEDURE: PAIN L/S TRANSFORAMINAL INJECT INDICATIONS: LUMBAR RADICULOPATHY COMPARISON: [facility], , PAIN L/S TRANSFORAMINAL INJECT, 10/09/2023, 10:00. FINDINGS: Fluoroscopic spot filming was performed to verify placement of spinal needles at the right L3-L4 level(s), as labeled on the films. Appropriate location(s) of the needle tip(s) was confirmed by injection of iodinated contrast. IMPRESSION: Intraoperative guidance provided. Dictated by: Lobo Conner M.D. on 12/04/2023 at 19:13 Approved by: Lobo Conner M.D. on 12/04/2023 at 19:14
[2023-12-04 15:01] VITALS: BP 136/65; PULSE 81; RESP 14; O2SAT 95
[2023-12-04] MEDS: iopamidoL 15 ML VIAL 3 ML INJ (15:02)
[2023-12-04] MEDS: DEXAMETHASONE 10 MG/ML VIAL INJ (15:02)
[2023-12-04 15:06] VITALS: BP 151/72; PULSE 81; RESP 19; O2SAT 100
[2023-12-04 15:11] VITALS: BP 161/74; PULSE 87; RESP 17; O2SAT 100
[2023-12-04 15:16] VITALS: BP 138/72; PULSE 78; RESP 16; O2SAT 99
--- NOTE | 2023-12-04 16:51 | P.PCN_ITS ---
Date/Time/Diagnoses Date of procedure: 12/04/23 Time of procedure: 15:00 Procedure Notes Physician: Arnulfo Gray Total Fluoroscopy time (seconds): 22 Total sedation minutes: 0 Procedure in detail & Post-procedure care: Right L3-4 Transforaminal Epidural Steroid Injection Indications: Mike is presenting for treatment of lumbar radiculopathy with low back and leg pain. Preoperative diagnosis: Lumbar radiculopathy Postoperative diagnosis: Same Focused Examination: Ax3 Mood and affect are normal Vital Signs: VSS Consent: Following review of allergies and potential side effects/complications, including, but not necessarily limited to, infection, allergic reaction, local tissue breakdown, stroke, temporary or permanent nerve injury, paralysis, and possible , the patient indicated that they understood and agreed to pro ceed.? An informed consent document was signed by the patient, witnessed by a nurse and placed in the patient's chart.? Additionally, other treatment options including medications and physical therapy were reviewed with the patient. All questions were answered. Site was then marked. Anesthesia: Local Position: Prone Monitoring: NIBP, Pulse oximetry, 3 lead EKG Needle used: 22 gauge, 5 inch spinal needle Contrast: Isovue 300M Injectate: 10 mg Dexamethasone mixed with 1% lidocaine 1 ml and normal saline 1 mL Technique: The skin was prepped with chloraprep and draped in a sterile fashion. Time out was performed as per protocol. Oxygen applied via NC. Skin and subcutaneous structures of the needle entry site were infiltrated with 3mL of lidocaine 1%. Under fluoroscopic guidance, using an ipsilateral oblique view,?a 22 gauge 5 inch needle was advanced to the base of the right L3?pedicle.? The needle was advanced to the superio-posterior aspect of the neural foramen under lateral view.? Oblique and AP views were rechecked. No paresthesias noted by the patient during needle placement. In AP view and utilizing real-time digital subtraction fluoroscopy, 2 ml contrast was slowly injected. Epidural spread was observed without evidence for intravascular nor intrathecal uptake. Contrast spread was seen craniocaudally. The above injectate was then administered without paresthesias and the needle was subsequently withdrawn. Band-Aids applied to injection sites. EBL: less than 1 ml Complications: None Post Procedure: Patient was taken to the recovery and monitored. The patient was provided a Pain Log to continue to record the patient's response to the target- specific procedure prior to the patient's follow-up visit with the referring physician. Patient was stable upon discharge. Detailed post procedure instructions were provided. Patient was asked to call in the event of worsening pain, fever, weakness, numbness or bladder or bowel incontinence.
== END 2023-12-04 15:24 | disposition home or self-care (01) ==
PROVIDERS: Referring Provider Anesthesiology; Visit Provider Anesthesiology
DX: M54.16 Radiculopathy, lumbar region (principal)
CPT/HCPCS: 64483; 99152; J1100